=== PATIENT | female | born 1975 | race Caucasian/White ===

== ENCOUNTER 2018-07-27 11:34 | Emergency (ER) | payer MEDICAID ==
--- NOTE | 2018-07-27 11:38 | EDM.PDOC ---
ED HPI GENERAL MEDICAL PROBLEM - General Chief Complaint: Neuro Symptoms/Deficits Stated Complaint: AMB Time Seen by Provider: 07/27/18 11:35 Source of Information: Reports: Patient History Limitations: Reports: No Limitations - History of Present Illness INITIAL COMMENTS - FREE TEXT/NARRATIVE: History of present illness: []Patient has a history of MS and recently restarted her medications. She developed a migraine headache 2 weeks ago that has progressively been worsening. Patient states she has tingling on the left side of her body which is chronic and unchanged and she is currently taking gabapentin for. Patient is nauseated but not vomiting. She denies any fevers, chills, cough, dysuria or abdominal pain. She states she has been short of breath recently. She states when she has her migraine headaches usually a steroid taper works well for her pain. Patient also states that when she has tingling usually means her anemia is worsening. The bleeding. Review of systems: As per history of present illness and below otherwise all systems reviewed and negative. Past medical history: As per history of present illness and as reviewed below otherwise noncontributory. Surgical history: As per history of present illness and as reviewed below otherwise noncontributory. Social history: No reported history of drug or alcohol abuse. Family history: As per history of present illness and as reviewed below otherwise noncontributory. Physical exam: General: Well developed, well nourished in NAD HEENT: Atraumatic, normocephalic, pupils reactive, negative for conjunctival pallor or scleral icterus, mucous membranes moist, throat clear, neck supple, nontender, trachea midline. Lungs: Clear to auscultation, breath sounds equal bilaterally, chest nontender. Heart: S1S2, regular, negative for clicks, rubs, or JVD. Abdomen: Soft, nondistended, nontender. Negative for masses or hepatosplenomegaly. Negative for costovertebral tenderness. Pelvis: Stable nontender. Genitourinary: Deferred. Rectal: Deferred. Extremities: Atraumatic, negative for cords or calf pain. Neurovascular unremarkable. Neuro: Awake, alert, oriented. Cranial nerves II through XII unremarkable. Cerebellum unremarkable. Motor and sensory unremarkable throughout. Exam nonfocal. Skin:warm and dry Diagnostics: CBC, chemistry, UA, chest x-ray Therapeutics: Zofran, hydrocodone ED Course: Unremarkable Impression: Cephalgia Prescriptions: Zofran, Medrol Dosepak Plan: Follow up with your primary care, iron supplements take meds as directed. Definitive disposition and diagnosis as appropriate pending reevaluation and review of above. headache and left side pain Pain Score (Numeric/FACES): 9 - Related Data Allergies Allergy/AdvReac Type Severity Reaction Status Date / Time No Known Allergies Allergy Verified 07/27/18 11:35 Home Meds: Home Meds Albuterol Sulfate [Proair Hfa] 1 puff INH ASDIRECTED PRN 07/27/18 [History] Biotin 1 tab PO DAILY 07/27/18 [History] Cyanocobalamin (Vitamin B-12) [Vitamin B-12] 2,500 mg PO DAILY 07/27/18 [History ] DULoxetine [Cymbalta] 60 mg PO DAILY 07/27/18 [History] Docusate Sodium 1 tab PO BEDTIME 07/27/18 [History] Eszopiclone 3 mg PO BEDTIME 07/27/18 [History] Eszopiclone 3 mg PO BEDTIME 07/27/18 [History] Ferrous Sulfate 325 mg PO DAILY 07/27/18 [History] Gabapentin [Neurontin] 900 mg PO TID 07/27/18 [History] Lisinopril/Hydrochlorothiazide [Lisinopril-Hctz 20-25 mg Tab] 1 tab PO DAILY [History] Nortriptyline 25 mg PO BEDTIME 07/27/18 [History] amLODIPine [Norvasc] 10 mg PO DAILY 07/27/18 [History] methylPREDNISolone [Medrol] 4 mg PO ASDIRECTED #1 dosepk 07/27/18 [Rx] tiZANidine [Zanaflex] 8 mg PO Q8HR PRN 07/27/18 [History] ED ROS GENERAL - Review of Systems Review Of Systems: ROS reveals no pertinent complaints other than HPI. ED EXAM, GENERAL - Physical Exam Exam: See Below (See history of present illness) Course - Vital Signs Last Recorded V/S: Last Vital Signs Temp 97.7 F 07/27/18 11:35 Pulse 117 H 07/27/18 11:35 Resp 16 07/27/18 11:35 BP 132/82 07/27/18 11:35 Pulse Ox 100 09/16/18 11:35 - Orders/Labs/Meds Orders: Active Orders 24 hr Category Date Time Status Chest 2V [CR] Stat Exams 07/27/18 11:46 Taken UA W/MICROSCOPIC [URIN] Stat Lab 07/27/18 11:46 Ordered Labs: Laboratory Tests 07/27/18 07/27/18 Range/Units 12:02 12:02 WBC 7.11 (4.0-11.0) K/uL RBC 4.04 L (4.30-5.90) M/uL Hgb 8.8 L (12.0-16.0) g/dL Hct 29.6 L (36.0-46.0) % MCV 73.3 L (80.0-98.0) fL MCH 21.8 L (27.0-32.0) pg MCHC 29.7 L (31.0-37.0) g/dL RDW Std Deviation 53.2 (28.0-62.0) fl RDW Coeff of Tramaine 20 H (11.0-15.0) % Plt Count 469 H (150-400) K/uL MPV 8.20 (7.40-12.00) fL Neut % (Auto) 64.7 (48.0-80.0) % Lymph % (Auto) 25.5 (16.0-40.0) % [place] % (Auto) 8.0 (0.0-15.0) % Eos % (Auto) 1.4 (0.0-7.0) % Baso % (Auto) 0.4 (0.0-1.5) % Neut # (Auto) 4.6 (1.4-5.7) K/uL Lymph # (Auto) 1.8 (0.6-2.4) K/uL [place] # (Auto) 0.6 (0.0-0.8) K/uL Eos # (Auto) 0.1 (0.0-0.7) K/uL Baso # (Auto) 0.0 (0.0-0.1) K/uL Nucleated RBC % 0.0 /100WBC Nucleated RBCs # 0 K/uL Sodium 135 L (136-145) mmol/L Potassium 3.5 (3.5-5.1) mmol/L Chloride 99 (98-107) mmol/L Carbon Dioxide 27.4 (21.0-32.0) mmol/L BUN 19 H (7.0-18.0) mg/dL Creatinine 1.3 H (0.6-1.0) mg/dL Est Cr Clr Drug Dosing TNP Estimated GFR (MDRD) 44.9 ml/min Glucose 120 H (74-106) mg/dL Calcium 9.9 (8.5-10.1) mg/dL Total Bilirubin 0.2 (0.2-1.0) mg/dL AST 15 (15-37) IU/L ALT 21 (14-63) IU/L Alkaline Phosphatase 112 (46-116) U/L Total Protein 7.9 (6.4-8.2) g/dL Albumin 3.4 (3.4-5.0) g/dL Globulin 4.5 H (2.0-3.5) g/dL Albumin/Globulin Ratio 0.8 L (1.3-2.8) Meds: Medications Discontinued Medications Generic Name Dose Route Start Last Admin Trade Name Sanjeev PRN Reason Stop Dose Admin Hydrocodone Bitart/Acetaminophen 1 tab 07/27/18 11:54 07/27/18 12:18 [place] 325-5 Mg PO 07/27/18 11:55 1 tab ONETIME ONE Administration Ketorolac Tromethamine 60 mg 07/27/18 11:46 07/27/18 12:08 Toradol IM 07/27/18 11:47 Not Given ONETIME ONE Ondansetron HCl 4 mg 07/27/18 11:54 07/27/18 12:18 Zofran Odt PO 07/27/18 11:55 4 mg ONETIME ONE Administration Departure - Departure Time of Disposition: 12:52 Disposition: Home, Self-Care 01 Condition: Good Clinical Impression: Chronic anemia Migraine headache Qualifiers: Migraine type: unspecified Status migrainosus presence: without status migrainosus Intractability: not intractable Qualified Code(s): G43.909 - Migraine, unspecified, not intractable, without status migrainosus - Discharge Information *PRESCRIPTION DRUG MONITORING PROGRAM REVIEWED*: No *COPY OF PRESCRIPTION DRUG MONITORING REPORT IN PATIENT ANNETTE: No Prescriptions: methylPREDNISolone [Medrol] 4 mg PO ASDIRECTED #1 dosepk Forms: ED Department Discharge Additional Instructions: The following information is given to patients seen in the emergency department who are being discharged to home. This information is to outline your options for follow-up care. We provide all patients seen in our emergency department with a follow-up referral. The need for follow-up, as well as the timing and circumstances, are variable depending upon the specifics of your emergency department visit. If you don't have a primary care physician on staff, we will provide you with a referral. We always advise you to contact your personal physician following an emergency department visit to inform them of the circumstance of the visit and for follow-up with them and/or the need for any referrals to a consulting specialist. The emergency department will also refer you to a specialist when appropriate. This referral assures that you have the opportunity for follow-up care with a specialist. All of these measure are taken in an effort to provide you with optimal care, which includes your follow-up. Under all circumstances we always encourage you to contact your private physician who remains a resource for coordinating your care. When calling for follow-up care, please make the office aware that this follow-up is from your recent emergency room visit. If for any reason you are refused follow-up, please contact the [facility] Emergency Department at and asked to speak to the emergency department charge nurse. Take meds as directed, add iron supplement for anemia follow-up with primary care return if symptoms worsen or change [facility] [address] [place] [id number] - My Orders Last 24 Hours: My Active Orders 07/27/18 11:46 Chest 2V [CR] Stat UA W/MICROSCOPIC [URIN] Stat - Assessment/Plan Last 24 Hours: My Active Orders 07/27/18 11:46 Chest 2V [CR] Stat UA W/MICROSCOPIC [URIN] Stat
[2018-07-27] MEDS ORDERED: Ketorolac 60 MG/2 ML SDV IM ONE (11:46)
[2018-07-27] MEDS ORDERED: Acetaminophen/HYDROcodone 325-5 MG Tab PO ONE (11:54)
[2018-07-27] MEDS ORDERED: Ondansetron 4 MG Tab.DIS PO ONE (11:54)
[2018-07-27 12:40] LABS: CHLORIDE,CL 99 mmol/L (98-107); SODIUM,NA 135 mmol/L (136-145)
--- NOTE | 2018-07-29 09:57 | CR ---
EXAM DATE: 07/27/18 PATIENT'S AGE: 43 Patient: SHAYY HAILE Facility: [place] [place] Site . Site : [id number] Study: XRay Chest [id number] 12:32:14 PM Ordering Physician: Chema Pardo Final Report: INDICATION: pain/sob/MS 2 View Chest. Findings: The lungs are clear. Pulmonary vascularity, mediastinum and cardiac silhouette are within normal limits. No effusions and no pneumothorax. Osseous structures appear unremarkable. Impression: No evidence of acute cardiopulmonary disease. Dictated by: Bebeto Redding MD @ 07/27/2018 12:54:37 (Electronic Signature) Report Signed by Proxy. LASHAUN
== END 2018-07-27 13:00 | disposition home or self-care (01) ==
LOC: MW.ED 11:34
DX: G43.909 Migraine, unspecified, not intractable, without status migrainosus (principal); D64.9 Anemia, unspecified; Z79.899 Other long term (current) drug therapy
CPT/HCPCS: 36415; 71046; 80053; 81001; 85025; 99285; A9270

== ENCOUNTER 2018-07-31 07:27 | Observation (INO) | payer SELFPAY ==
[2018-07-31] MEDS ORDERED: HYDROmorphone 2 MG/ML SDV IVPUSH PRN (07:31)
[2018-07-31] MEDS ORDERED: Sodium Chloride 0.9% 1,000 ML IV ONE (07:31)
[2018-07-31] MEDS ORDERED: Ondansetron 4 MG/2 ML SDV ONE (07:52)
[2018-07-31] MEDS ORDERED: Ondansetron 4 MG/2 ML SDV IVPUSH ONE (07:55)
[2018-07-31 08:21] LABS: CHLORIDE,CL 100 mmol/L (98-107); SODIUM,NA 137 mmol/L (136-145)
[2018-07-31] MEDS ORDERED: HYDROmorphone 1 MG/ML Syringe IVPUSH ONE (09:34)
--- NOTE | 2018-07-31 09:44 | CR ---
EXAMINATION: Portable chest radiograph. HISTORY: Shortness of breath. FINDINGS: The trachea is midline. The cardiomediastinal silhouette is within normal limits. No pulmonary infilt rates, effusions or pneumothorax. Moderate hiatal hernia. Osseous structures appear unremarkable. IMPRESSION: No acute cardiopulmonary process.
--- NOTE | 2018-07-31 10:02 | US ---
ULTRASOUND EXAMINATION OF the right lower extremity WITH DOPPLER HISTORY: Pain FINDINGS: Examination of the right leg was performed from the groin to the calf region. All visualized segment s including common femoral, proximal greater saphenous, superficial femoral, popliteal and calf veins appear patent with good compressibility and augmentation. There is no evidence of deep vein thrombo sis. IMPRESSION: No evidence of a DVT.
[2018-07-31] MEDS ORDERED: HYDROmorphone 2 MG/ML Syringe IVPUSH ONE ×2 (10:39→10:49)
[2018-07-31] MEDS ORDERED: HYDROmorphone 2 MG/ML SDV ONE (10:43)
[2018-07-31] MEDS ORDERED: HYDROmorphone 2 MG/ML SDV IVPUSH ONE (10:52)
--- NOTE | 2018-07-31 11:49 | US ---
EXAMINATION: ABIs HISTORY: Pain COMPARISON: None TECHNIQUE: Pressures obtained in the upper and lower extremities bilaterally. FINDINGS/IMPRESSION: The right TERESA is notably abnormal at 0.56 suggesting serious claudication. The l eft TERESA is grossly normal at 0.93.
[2018-07-31] MEDS ORDERED: Ketorolac 30 MG/ML SDV IVPUSH ONE (12:18)
[2018-07-31] MEDS ORDERED: methylPREDNISolone Sodium Succinate 125 MG/2 ML SDV IVPUSH ONE (12:34)
--- NOTE | 2018-07-31 12:56 | EDM.PDOC ---
ED HPI GENERAL MEDICAL PROBLEM - General Chief Complaint: Lower Extremity Injury/Pain Stated Complaint: AMBULANCE Time Seen by Provider: 07/31/18 12:53 Source of Information: Reports: Patient - History of Present Illness INITIAL COMMENTS - FREE TEXT/NARRATIVE: HISTORY AND PHYSICAL: History of present illness: Patient presents with 10 out of 10 right lower extremity pain calf to ankle, began while standing at work with no injury or trauma she's had one episode like this previously that lasted for a couple of days she has a history of MS she is taking Neurontin 900 mg 3 times daily No fever nausea vomiting chills sweats no chest pain shortness breath headache dizziness palpitation no bowel or urine symptoms no footdrop or saddle anesthesia 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 Past medical history: As per history of present illness and as reviewed below otherwise noncontributory. Surgical history: As per history of present illness and as reviewed below otherwise noncontributory. Social history: No reported history of drug or alcohol abuse. Family history: As per history of present illness and as reviewed below otherwise noncontributory. Physical exam: HEENT: Atraumatic, normocephalic, pupils reactive, negative for conjunctival pallor or scleral icterus, mucous membranes moist, throat clear, neck supple, nontender, trachea midline. Lungs: Clear to auscultation, breath sounds equal bilaterally, chest nontender. Heart: S1S2, regular, negative for clicks, rubs, or JVD. Abdomen: Soft, nondistended, nontender. Negative for masses or hepatosplenomegaly. Negative for costovertebral tenderness. Pelvis: Stable nontender. Genitourinary: Deferred. Rectal: Deferred. Extremities: Atraumatic, negative for cords or calf pain. Neurovascular unremarkable. congenital abnormality left foot noted Neuro: Awake, alert, oriented. Cranial nerves II through XII unremarkable. Cerebellum unremarkable. Motor and sensory unremarkable throughout. Exam nonfocal. Diagnostics: [TERESA Venous ultrasound rule out DVT CBC CMP INR ] Therapeutics: Dilaudid 0.5 mg IV followed by 1 mg IV followed by [Dilaudid 2 mg IV ] Toradol 30 mg IV Solu-Medrol 125 mg IV Patient is on Neurontin Impression: [Right lower extremity pain] Intractable pain Definitive disposition and diagnosis as appropriate pending reevaluation and review of above. Right foot/Left arm Pain Score (Numeric/FACES): 10 - Related Data Allergies Allergy/AdvReac Type Severity Reaction Status Date / Time No Known Allergies Allergy Verified 07/31/18 07:29 Home Meds: Home Meds Albuterol Sulfate [Proair Hfa] 1 puff INH ASDIRECTED PRN 07/27/18 [History] Biotin 1 tab PO DAILY 07/27/18 [History] Cyanocobalamin (Vitamin B-12) [Vitamin B-12] 2,500 mg PO DAILY 07/27/18 [History ] DULoxetine [Cymbalta] 60 mg PO DAILY 07/27/18 [History] Docusate Sodium 1 tab PO BEDTIME 07/27/18 [History] Eszopiclone 3 mg PO BEDTIME 07/27/18 [History] Eszopiclone 3 mg PO BEDTIME 07/27/18 [History] Ferrous Sulfate 325 mg PO DAILY 07/27/18 [History] Gabapentin [Neurontin] 900 mg PO TID 07/27/18 [History] Lisinopril/Hydrochlorothiazide [Lisinopril-Hctz 20-25 mg Tab] 1 tab PO DAILY [History] Nortriptyline 25 mg PO BEDTIME 07/27/18 [History] amLODIPine [Norvasc] 10 mg PO DAILY 07/27/18 [History] methylPREDNISolone [Medrol] 4 mg PO ASDIRECTED #1 dosepk 07/27/18 [Rx] tiZANidine [Zanaflex] 8 mg PO Q8HR PRN 07/27/18 [History] Past Medical History Cardiovascular History: Reports: Hypertension Neurological History: Reports: Migraines, TIA, Other (See Below) Other Neuro History: MS Psychiatric History: Reports: Anxiety, Depression Social & Family History - Family History Family Medical History: Noncontributory - Tobacco Use Smoking Status *Q: Current Every Day Smoker Years of Tobacco use: 23 Packs/Tins Daily: 1 - Caffeine Use Caffeine Use: Reports: Coffee, Energy Drinks, Soda, Tea - Recreational Drug Use Recreational Drug Use: No Review of Systems - Review of Systems Review Of Systems: See Below ED EXAM, GENERAL - Physical Exam Exam: See Below Course - Vital Signs Last Recorded V/S: Last Vital Signs Temp 97.4 F 07/31/18 07:30 Pulse 116 H 07/31/18 10:54 Resp 16 07/31/18 10:54 BP 152/77 H 07/31/18 10:54 Pulse Ox 99 07/31/18 10:54 - Orders/Labs/Meds Orders: Active Orders 24 hr Category Date Time Status EKG Documentation Completion [RC] STAT Care 07/31/18 07:31 Active UA W/MICROSCOPIC [URIN] Stat Lab 07/31/18 07:31 Ordered HYDROmorphone [Dilaudid] Med 07/31/18 07:31 Active 0.5 mg IVPUSH ONETIME PRN Medication Orders Hydromorphone HCl (Dilaudid) 0.5 mg IVPUSH ONETIME PRN PRN Reason: Pain Last Admin: 07/31/18 07:47 Dose: 0.5 mg Labs: Laboratory Tests 07/31/18 07/31/18 07/31/18 Range/Units 07:40 07:40 07:40 WBC 12.64 H (4.0-11.0) K/uL RBC 3.95 L (4.30-5.90) M/uL Hgb 8.7 L (12.0-16.0) g/dL Hct 29.4 L (36.0-46.0) % MCV 74.4 L (80.0-98.0) fL MCH 22.0 L (27.0-32.0) pg MCHC 29.6 L (31.0-37.0) g/dL RDW Std Deviation 53.3 (28.0-62.0) fl RDW Coeff of Tramaine 20 H (11.0-15.0) % Plt Count 306 (150-400) K/uL MPV 8.10 (7.40-12.00) fL Neut % (Auto) 67.1 (48.0-80.0) % Lymph % (Auto) 23.0 (16.0-40.0) % [place] % (Auto) 9.3 (0.0-15.0) % Eos % (Auto) 0.3 (0.0-7.0) % Baso % (Auto) 0.3 (0.0-1.5) % Neut # (Auto) 8.5 H (1.4-5.7) K/uL Lymph # (Auto) 2.9 H (0.6-2.4) K/uL [place] # (Auto) 1.2 H (0.0-0.8) K/uL Eos # (Auto) 0.0 (0.0-0.7) K/uL Baso # (Auto) 0.0 (0.0-0.1) K/uL Nucleated RBC % 0.2 /100WBC Nucleated RBCs # 0 K/uL INR 0.95 Sodium 137 (136-145) mmol/L Potassium 3.3 L (3.5-5.1) mmol/L Chloride 100 (98-107) mmol/L Carbon Dioxide 21.7 (21.0-32.0) mmol/L BUN 13 (7.0-18.0) mg/dL Creatinine 1.3 H (0.6-1.0) mg/dL Est Cr Clr Drug Dosing TNP Estimated GFR (MDRD) 44.9 ml/min Glucose 114 H (74-106) mg/dL Calcium 8.9 (8.5-10.1) mg/dL Total Bilirubin 0.1 L (0.2-1.0) mg/dL AST 27 (15-37) IU/L ALT 37 (14-63) IU/L Alkaline Phosphatase 103 (46-116) U/L Troponin I < 0.050 (0.000-0.056) ng/mL Total Protein 7.7 (6.4-8.2) g/dL Albumin 3.4 (3.4-5.0) g/dL Globulin 4.3 H (2.0-3.5) g/dL Albumin/Globulin Ratio 0.8 L (1.3-2.8) Meds: Medications Generic Name Dose Route Start Last Admin Trade Name Freq PRN Reason Stop Dose Admin Hydromorphone HCl 0.5 mg 07/31/18 07:31 07/31/18 07:47 Dilaudid IVPUSH 0.5 mg ONETIME PRN Administration Pain Discontinued Medications Generic Name Dose Route Start Last Admin Trade Name Freq PRN Reason Stop Dose Admin Hydromorphone HCl 1 mg 07/31/18 09:34 07/31/18 09:38 Dilaudid IVPUSH 07/31/18 09:35 1 mg ONETIME ONE Administration Hydromorphone HCl 2 mg 07/31/18 10:39 07/31/18 10:54 Dilaudid IVPUSH 07/31/18 10:40 Not Given ONETIME ONE Hydromorphone HCl Confirm 07/31/18 10:43 07/31/18 10:48 Dilaudid Administered 07/31/18 10:44 Not Given Dose 2 mg .ROUTE .STK-MED ONE Hydromorphone HCl 2 mg 07/31/18 10:49 07/31/18 10:54 Dilaudid IVPUSH 07/31/18 10:50 Not Given ONETIME ONE Hydromorphone HCl 2 mg 07/31/18 10:52 07/31/18 10:53 Dilaudid IVPUSH 07/31/18 10:53 2 mg ONETIME ONE Administration Sodium Chloride 1,000 mls @ 999 mls/hr 07/31/18 07:31 07/31/18 07:47 Normal Saline IV 07/31/18 08:31 999 mls/hr STAT ONE Administration Ketorolac Tromethamine 30 mg 07/31/18 12:18 07/31/18 12:40 Toradol IVPUSH 07/31/18 12:19 30 mg ONETIME ONE Administration Methylprednisolone Sodium Succinate 125 mg 07/31/18 12:34 07/31/18 12:50 Solu-Medrol IVPUSH 07/31/18 12:35 125 mg ONETIME ONE Administration Ondansetron HCl 8 mg 07/31/18 07:55 07/31/18 07:56 Zofran IVPUSH 07/31/18 07:56 8 mg ONETIME ONE Administration Ondansetron HCl Confirm 07/31/18 07:52 07/31/18 07:57 Zofran Administered 07/31/18 07:53 Not Given Dose 8 mg .ROUTE .STK-MED ONE Departure - Departure Time of Disposition: 13:30 Disposition: Refer to Observation Condition: Fair Clinical Impression: Intractable pain - Discharge Information Referrals: PCP,None [Primary Care Provider] - Forms: ED Department Discharge - My Orders Last 24 Hours: My Active Orders 07/31/18 07:31 EKG Documentation Completion [RC] STAT UA W/MICROSCOPIC [URIN] Stat HYDROmorphone [Dilaudid] 0.5 mg IVPUSH ONETIME PRN - Assessment/Plan Last 24 Hours: My Active Orders 07/31/18 07:31 EKG Documentation Completion [RC] STAT UA W/MICROSCOPIC [URIN] Stat HYDROmorphone [Dilaudid] 0.5 mg IVPUSH ONETIME PRN
[2018-07-31] MEDS ORDERED: tiZANidine 4 MG Tab PO PRN (15:31)
[2018-07-31] MEDS ORDERED: Albuterol 6.7 GM Inhaler INH PRN (15:31)
--- NOTE | 2018-07-31 15:41 | PCM.HP ---
H&P History of Present Illness - General Date of Service: 07/31/18 Admit Problem/Dx: Admission Diagnosis/Problem Admission Diagnosis/Problem Pain - History of Present Illness Initial Comments - Free Text/Narative: She was at work today standing when she noted severe burning pain right foot. She had similar pain one time before but it was not nearly so severe and it resolved without medical attention. She suffered an injury with fracture right foot more than one year ago. The last episode of was sometime after the aforementioned injury. NO acute trauma no fever no history of DM She was diagnosed with multiple sclerosis in 2013 and at times, since then has had intermittent paresthesias with a burning pain. She has a neurology appointment in [place] later this month. It will be her initial neurology visit with this neurologist. She comes from [place]. Right foot/Left arm Pain Score (Numeric/FACES): 8 - Related Data Allergies/Adverse Reactions: Allergies Allergy/AdvReac Type Severity Reaction Status Date / Time No Known Allergies Allergy Verified 07/31/18 07:29 Home Medications: Home Meds Albuterol Sulfate [Proair Hfa] 1 puff INH ASDIRECTED PRN 07/27/18 [History] Biotin 1 tab PO DAILY 07/27/18 [History] Cyanocobalamin (Vitamin B-12) [Vitamin B-12] 2,500 mg PO DAILY 07/27/18 [History ] DULoxetine [Cymbalta] 60 mg PO DAILY 07/27/18 [History] Docusate Sodium 1 tab PO BEDTIME 07/27/18 [History] Eszopiclone 3 mg PO BEDTIME 07/27/18 [History] Eszopiclone 3 mg PO BEDTIME 07/27/18 [History] Ferrous Sulfate 325 mg PO DAILY 07/27/18 [History] Gabapentin [Neurontin] 900 mg PO TID 07/27/18 [History] Lisinopril/Hydrochlorothiazide [Lisinopril-Hctz 20-25 mg Tab] 1 tab PO DAILY [History] Nortriptyline 25 mg PO BEDTIME 07/27/18 [History] amLODIPine [Norvasc] 10 mg PO DAILY 07/27/18 [History] methylPREDNISolone [Medrol] 4 mg PO ASDIRECTED #1 dosepk 07/27/18 [Rx] tiZANidine [Zanaflex] 8 mg PO Q8HR PRN 07/27/18 [History] Past Medical History Cardiovascular History: Reports: Hypertension Respiratory History: Reports: Other (See Below) (bronchospasm; treated with albuterol MDI) Gastrointestinal History: Denies: Cirrhosis Genitourinary History: Denies: Chronic Renal Insuffiency Neurological History: Reports: Migraines, TIA, Other (See Below) Other Neuro History: MS Psychiatric History: Reports: Anxiety, Depression Endocrine/Metabolic History: Denies: Hocking's Disease, Diabetes, Type I, Diabetes, Type II Immunologic History: Denies: AIDS, HIV Social & Family History - Family History Family Medical History: Noncontributory - Tobacco Use Smoking Status *Q: Current Every Day Smoker Years of Tobacco use: 23 Packs/Tins Daily: 1 - Caffeine Use Caffeine Use: Reports: Coffee, Energy Drinks, Soda, Tea - Recreational Drug Use Recreational Drug Use: No H&P Review of Systems - Review of Systems: Review Of Systems: See Below Free Text/Narrative: she has regular menstrual periods. General: Denies: Fever, Chills Pulmonary: Denies: Shortness of Breath, Wheezing, Sputum, Hemoptysis Cardiovascular: Denies: Chest Pain, Edema Gastrointestinal: Denies: Abdominal Pain, Black Stool, Bloody Stool, Hematemesis , Hematochezia, Melena Genitourinary: Denies: Dysuria, Hematuria Skin: Denies: Cyanosis Psychiatric: Denies: Hallucinations Exam - Exam Exam: See Below - Vital Signs Vital Signs: Last Vital Signs Temp 97.9 F 07/31/18 14:34 Pulse 108 H 07/31/18 14:34 Resp 22 H 07/31/18 14:34 BP 189/102 H 07/31/18 14:34 Pulse Ox 98 07/31/18 14:34 - Exam General: Alert, Oriented, Cooperative, Moderate Distress HEENT: Conjunctiva Clear, EOMI Neck: Supple, Trachea Midline Lungs: Clear to Auscultation, Normal Respiratory Effort Cardiovascular: Regular Rate, Regular Rhythm GI/Abdominal Exam: Soft, Non-Tender (Female) Exam: Deferred Extremities: Other (right foot non tender; no swelling ; no deformity; non tender) Neurological: Cranial Nerves Intact, Normal Speech Neuro Extensive - Motor, Sensory, Reflexes: No: Facial palsy (L), Facial Palsy ( R), Hemeplagia (R), Hemeplagia (L) Psychiatric: No: Agitated - Patient Data Lab Results Last 24 hrs: Laboratory Results - last 24 hr 07/31/18 07/31/18 07/31/18 Range/Units 07:40 07:40 07:40 WBC 12.64 H (4.0-11.0) K/uL RBC 3.95 L (4.30-5.90) M/uL Hgb 8.7 L (12.0-16.0) g/dL Hct 29.4 L (36.0-46.0) % MCV 74.4 L (80.0-98.0) fL MCH 22.0 L (27.0-32.0) pg MCHC 29.6 L (31.0-37.0) g/dL RDW Std Deviation 53.3 (28.0-62.0) fl RDW Coeff of Tramaine 20 H (11.0-15.0) % Plt Count 306 (150-400) K/uL MPV 8.10 (7.40-12.00) fL Neut % (Auto) 67.1 (48.0-80.0) % Lymph % (Auto) 23.0 (16.0-40.0) % Martin % (Auto) 9.3 (0.0-15.0) % Eos % (Auto) 0.3 (0.0-7.0) % Baso % (Auto) 0.3 (0.0-1.5) % Neut # (Auto) 8.5 H (1.4-5.7) K/uL Lymph # (Auto) 2.9 H (0.6-2.4) K/uL Martin # (Auto) 1.2 H (0.0-0.8) K/uL Eos # (Auto) 0.0 (0.0-0.7) K/uL Baso # (Auto) 0.0 (0.0-0.1) K/uL Nucleated RBC % 0.2 /100WBC Nucleated RBCs # 0 K/uL INR 0.95 Sodium 137 (136-145) mmol/L Potassium 3.3 L (3.5-5.1) mmol/L Chloride 100 (98-107) mmol/L Carbon Dioxide 21.7 (21.0-32.0) mmol/L BUN 13 (7.0-18.0) mg/dL Creatinine 1.3 H (0.6-1.0) mg/dL Est Cr Clr Drug Dosing TNP Estimated GFR (MDRD) 44.9 ml/min Glucose 114 H (74-106) mg/dL Calcium 8.9 (8.5-10.1) mg/dL Total Bilirubin 0.1 L (0.2-1.0) mg/dL AST 27 (15-37) IU/L ALT 37 (14-63) IU/L Alkaline Phosphatase 103 (46-116) U/L Troponin I < 0.050 (0.000-0.056) ng/mL Total Protein 7.7 (6.4-8.2) g/dL Albumin 3.4 (3.4-5.0) g/dL Globulin 4.3 H (2.0-3.5) g/dL Albumin/Globulin Ratio 0.8 L (1.3-2.8) Urine Color Urine Appearance Urine pH (5.0-8.0) Ur Specific [place] (1.001-1.035) Urine Protein (NEGATIVE) mg/dL Urine Glucose (UA) (NEGATIVE) mg/dL Urine Ketones (NEGATIVE) mg/dL Urine Occult Blood (NEGATIVE) Urine Nitrite (NEGATIVE) Urine Bilirubin (NEGATIVE) Urine Urobilinogen (<2.0) EU/dL Ur Leukocyte Esterase (NEGATIVE) Urine RBC (0-2/HPF) Urine WBC (0-5/HPF) Ur Epithelial Cells (NONE-FEW) Amorphous Sediment (NEGATIVE) Urine Bacteria (NEGATIVE) 07/31/18 Range/Units 14:40 WBC (4.0-11.0) K/uL RBC (4.30-5.90) M/uL Hgb (12.0-16.0) g/dL Hct (36.0-46.0) % MCV (80.0-98.0) fL MCH (27.0-32.0) pg MCHC (31.0-37.0) g/dL RDW Std Deviation (28.0-62.0) fl RDW Coeff of Tramaine (11.0-15.0) % Plt Count (150-400) K/uL MPV (7.40-12.00) fL Neut % (Auto) (48.0-80.0) % Lymph % (Auto) (16.0-40.0) % Martin % (Auto) (0.0-15.0) % Eos % (Auto) (0.0-7.0) % Baso % (Auto) (0.0-1.5) % Neut # (Auto) (1.4-5.7) K/uL Lymph # (Auto) (0.6-2.4) K/uL Martin # (Auto) (0.0-0.8) K/uL Eos # (Auto) (0.0-0.7) K/uL Baso # (Auto) (0.0-0.1) K/uL Nucleated RBC % /100WBC Nucleated RBCs # K/uL INR Sodium (136-145) mmol/L Potassium (3.5-5.1) mmol/L Chloride (98-107) mmol/L Carbon Dioxide (21.0-32.0) mmol/L BUN (7.0-18.0) mg/dL Creatinine (0.6-1.0) mg/dL Est Cr Clr Drug Dosing Estimated GFR (MDRD) ml/min Glucose (74-106) mg/dL Calcium (8.5-10.1) mg/dL Total Bilirubin (0.2-1.0) mg/dL AST (15-37) IU/L ALT (14-63) IU/L Alkaline Phosphatase (46-116) U/L Troponin I (0.000-0.056) ng/mL Total Protein (6.4-8.2) g/dL Albumin (3.4-5.0) g/dL Globulin (2.0-3.5) g/dL Albumin/Globulin Ratio (1.3-2.8) Urine Color YELLOW Urine Appearance SLT CLOUDY Urine pH 6.0 (5.0-8.0) Ur Specific [place] 1.025 (1.001-1.035) Urine Protein TRACE (NEGATIVE) mg/dL Urine Glucose (UA) NEGATIVE (NEGATIVE) mg/dL Urine Ketones NEGATIVE (NEGATIVE) mg/dL Urine Occult Blood TRACE-INTACT (NEGATIVE) Urine Nitrite NEGATIVE (NEGATIVE) Urine Bilirubin NEGATIVE (NEGATIVE) Urine Urobilinogen 0.2 (<2.0) EU/dL Ur Leukocyte Esterase SMALL (NEGATIVE) Urine RBC 0-2 (0-2/HPF) Urine WBC 1-3 (0-5/HPF) Ur Epithelial Cells MANY (NONE-FEW) Amorphous Sediment MODERATE (NEGATIVE) Urine Bacteria FEW (NEGATIVE) Result Diagrams: 07/31/18 07:40 07/31/18 07:40 - Problem List (1) Multiple sclerosis SNOMED Code(s): 36800385 ICD Code: G35 - MULTIPLE SCLEROSIS Status: Acute Current Visit: Yes (2) Intractable pain SNOMED Code(s): 42677650 ICD Code: R52 - PAIN, UNSPECIFIED Status: Acute Current Visit: Yes (3) Chronic anemia SNOMED Code(s): 982768763 ICD Code: D64.9 - ANEMIA, UNSPECIFIED Status: Acute Current Visit: No Problem List Initiated/Reviewed/Updated: Yes Orders Last 24hrs: Active Orders 24 hr Category Date Time Status Admission Status [Patient Status] [ADT] Stat ADT 07/31/18 13:30 Active EKG Documentation Completion [RC] STAT Care 07/31/18 07:31 Active Albuterol [Proventil HFA] Med 07/31/18 15:31 Ordered 1 puff INH Q4H PRN DULoxetine [Cymbalta] Med 08/01/18 09:00 Ordered 60 mg PO DAILY Docusate Sodium [Docusate Sodium] Med 07/31/18 21:00 Ordered 1 tab PO BEDTIME Eszopiclone [Eszopiclone] Med 07/31/18 21:00 Ordered 3 mg PO BEDTIME Ferrous Sulfate Med 08/01/18 09:00 Ordered 325 mg PO DAILY Gabapentin [Neurontin] Med 07/31/18 22:00 Ordered 900 mg PO TID HYDROmorphone [Dilaudid] Med 07/31/18 07:31 Active 0.5 mg IVPUSH ONETIME PRN Lisinopril/Hydrochlorothiazide [Lisinopril-Hctz 20-25 Med 08/01/18 09:00 Ordered mg Tab] 1 tab PO DAILY Nortriptyline Med 07/31/18 21:00 Ordered 25 mg PO BEDTIME amLODIPine [Norvasc] Med 08/01/18 09:00 Ordered 10 mg PO DAILY fentaNYL [Sublimaze] Med 07/31/18 15:31 Ordered 50 mcg IVPUSH Q1H PRN methylPREDNISolone Sod Succ [Solu-MEDROL] Med 07/31/18 15:45 Ordered 125 mg IVPUSH Q6H tiZANidine [Zanaflex] Med 07/31/18 15:31 Ordered 8 mg PO Q8HR PRN Medication Orders Albuterol (Proventil Hfa) gm INH Q4H PRN PRN Reason: Shortness of Breath Amlodipine Besylate (Norvasc) 10 mg PO DAILY ANITRA Duloxetine HCl (Cymbalta) 60 mg PO DAILY [facility] Fentanyl (Sublimaze) 50 mcg IVPUSH Q1H PRN PRN Reason: Pain Ferrous Sulfate (Ferrous Sulfate) 325 mg PO DAILY ANIT[facility] Gabapentin (Neurontin) 900 mg PO TID ANITRA Hydromorphone HCl (Dilaudid) 0.5 mg IVPUSH ONETIME PRN PRN Reason: Pain Last Admin: 07/31/18 07:47 Dose: 0.5 mg Methylprednisolone Sodium Succinate (Solu-Medrol) 125 mg IVPUSH Q6H ANITRA Non-Formulary Medication (Docusate Sodium [Docusate Sodium]) 1 tab PO BEDTIME ANITRA Non-Formulary Medication (Eszopiclone [Eszopiclone]) 3 mg PO BEDTIME AN[facility]RA Non-Formulary Medication (Lisinopril/Hydrochlorothiazide [Lisinopril-Hctz 20-25 Mg Tab]) 1 tab PO DAILY ANITRA Nortriptyline HCl (Nortriptyline) 25 mg PO BEDTIME ANITRA Tizanidine HCl (Zanaflex) 8 mg PO Q8HR PRN PRN Reason: Other Assessment/Plan Comment:: 07/31/2018 I suspect that this is a neuropathic pain associated with a flare up of her multiple sclerosis. will cover with systemic glucocorticosteroids and aggressively attempt analgesia. will replace K will work up anemia with fecal hemocult, B12, folate , Fe studies, reticulocyte count. follow CBC recheck chemistries in kris Chaudhari MD
[2018-07-31] MEDS ORDERED: Albuterol 8 GM Inhaler INH PRN (15:44)
[2018-07-31] MEDS ORDERED: Ondansetron 4 MG Tab.DIS PO PRN (15:45)
[2018-07-31] MEDS ORDERED: Bisacodyl 5 MG Tab PO PRN (15:45)
[2018-07-31] MEDS ORDERED: Temazepam 15 MG Cap PO PRN (15:45)
[2018-07-31] MEDS: fentaNYL 100 MCG/2 ML SDV IVPUSH PRN ×4 (15:55→21:14)
[2018-07-31] MEDS: NS + KCl 20mEq/L 1,000 ML IV SCH (18:17)
[2018-07-31] MEDS: methylPREDNISolone Sodium Succinate 125 MG/2 ML SDV IVPUSH SCH (18:22)
[2018-07-31] MEDS ORDERED: fentaNYL 250 MCG/5 ML SDV IVPUSH ONE (18:34)
[2018-07-31] MEDS ORDERED: fentaNYL 100 MCG/2 ML SDV IVPUSH ONE ×2 (19:10→21:33)
[2018-07-31] MEDS: tiZANidine 4 MG Tab PO PRN (21:13)
[2018-07-31] MEDS: Gabapentin 300 MG Cap PO SCH (21:14)
[2018-07-31] MEDS: Docusate Sodium 100 MG Cap PO SCH (21:14)
[2018-07-31] MEDS: Nortriptyline 25 MG Cap PO SCH (21:14)
[2018-07-31] MEDS ORDERED: fentaNYL 100 MCG/2 ML SDV ONE (21:38)
[2018-07-31] MEDS: Ketorolac 30 MG/ML SDV IVPUSH PRN (23:08)
[2018-07-31] MEDS: oxyCODONE 5 MG Tab PO PRN (23:09)
[2018-08-01] MEDS: oxyCODONE 5 MG Tab PO PRN ×4 (03:46→21:10)
[2018-08-01] MEDS: Gabapentin 300 MG Cap PO SCH ×3 (05:33→21:10)
[2018-08-01] MEDS: methylPREDNISolone Sodium Succinate 125 MG/2 ML SDV IVPUSH SCH ×3 (05:33→12:20)
[2018-08-01] MEDS: fentaNYL 100 MCG/2 ML SDV IVPUSH PRN ×12 (05:33→23:39)
[2018-08-01] MEDS: Ketorolac 30 MG/ML SDV IVPUSH PRN ×2 (07:53→20:02)
[2018-08-01] MEDS: Lisinopril/Hydrochlorothiazide 10-12.5 MG Tab PO SCH (08:00)
[2018-08-01] MEDS: DULoxetine 60 MG Cap PO SCH (08:01)
[2018-08-01] MEDS: Ferrous Sulfate 325 MG Tab PO SCH (08:01)
[2018-08-01] MEDS: amLODIPine 5 MG Tab PO SCH ×2 (08:01→08:02)
[2018-08-01] MEDS: NS + KCl 20mEq/L 1,000 ML IV SCH (08:14)
--- NOTE | 2018-08-01 11:40 | PCM.PN ---
- General Info Date of Service: 08/01/18 Subjective Update: She was able to sleep about four hours last night. She has more pain this am . She states that she did not take any po pain medicine this am. - Patient Data Vitals - Most Recent: Last Vital Signs Temp 96.8 F 08/01/18 07:56 Pulse 101 H 08/01/18 07:56 Resp 19 08/01/18 07:56 BP 161/87 H 08/01/18 08:02 Pulse Ox 96 08/01/18 07:56 Weight - Most Recent: 123.916 kg I&O - Last 24 Hours: Intake & Output 07/31/18 08/01/18 08/01/18 22:59 06:59 14:59 Intake Total 1100 Output Total 1000 Balance 100 Lab Results Last 24 Hours: Laboratory Results - last 24 hr 07/31/18 07/31/18 07/31/18 Range/Units 14:40 16:05 16:05 WBC (4.0-11.0) K/uL RBC (4.30-5.90) M/uL Hgb (12.0-16.0) g/dL Hct (36.0-46.0) % MCV (80.0-98.0) fL MCH (27.0-32.0) pg MCHC (31.0-37.0) g/dL RDW Std Deviation (28.0-62.0) fl RDW Coeff of Tramaine (11.0-15.0) % Plt Count (150-400) K/uL MPV (7.40-12.00) fL Neut % (Auto) (48.0-80.0) % Lymph % (Auto) (16.0-40.0) % [place] % (Auto) (0.0-15.0) % Eos % (Auto) (0.0-7.0) % Baso % (Auto) (0.0-1.5) % Neut # (Auto) (1.4-5.7) K/uL Lymph # (Auto) (0.6-2.4) K/uL [place] # (Auto) (0.0-0.8) K/uL Eos # (Auto) (0.0-0.7) K/uL Baso # (Auto) (0.0-0.1) K/uL Nucleated RBC % /100WBC Nucleated RBCs # K/uL Absolute Retic (20-80) K/uL Percent Retic (0.5-1.5) % Immature Retic Fraction % Sodium (136-145) mmol/L Potassium (3.5-5.1) mmol/L Chloride (98-107) mmol/L Carbon Dioxide (21.0-32.0) mmol/L BUN (7.0-18.0) mg/dL Creatinine (0.6-1.0) mg/dL Est Cr Clr Drug Dosing mL/min Estimated GFR (MDRD) ml/min Glucose (74-106) mg/dL Calcium (8.5-10.1) mg/dL Magnesium (1.8-2.4) mg/dL Iron (50-175) ug/dL TIBC (250-450) ug/dL % Saturation (20-55) % Transferrin (200-400) ug/dL Ferritin (8-252) ng/mL Vitamin B12 788 (193-986) pg/mL Folate (8.60-58.90) ng/mL HCG, Quant 1.0 mIU/mL Urine Color YELLOW Urine Appearance SLT CLOUDY Urine pH 6.0 (5.0-8.0) Ur Specific [place] 1.025 (1.001-1.035) Urine Protein TRACE (NEGATIVE) mg/dL Urine Glucose (UA) NEGATIVE (NEGATIVE) mg/dL Urine Ketones NEGATIVE (NEGATIVE) mg/dL Urine Occult Blood TRACE-INTACT (NEGATIVE) Urine Nitrite NEGATIVE (NEGATIVE) Urine Bilirubin NEGATIVE (NEGATIVE) Urine Urobilinogen 0.2 (<2.0) EU/dL Ur Leukocyte Esterase SMALL (NEGATIVE) Urine RBC 0-2 (0-2/HPF) Urine WBC 1-3 (0-5/HPF) Ur Epithelial Cells MANY (NONE-FEW) Amorphous Sediment MODERATE (NEGATIVE) Urine Bacteria FEW (NEGATIVE) 08/01/18 08/01/18 08/01/18 Range/Units 04:55 04:55 04:55 WBC 6.38 (4.0-11.0) K/uL RBC 3.84 L (4.30-5.90) M/uL Hgb 8.3 L (12.0-16.0) g/dL Hct 29.0 L (36.0-46.0) % MCV 75.5 L (80.0-98.0) fL MCH 21.6 L (27.0-32.0) pg MCHC 28.6 L (31.0-37.0) g/dL RDW Std Deviation 54.5 (28.0-62.0) fl RDW Coeff of Tramaine 21 H (11.0-15.0) % Plt Count 224 (150-400) K/uL MPV 9.40 (7.40-12.00) fL Neut % (Auto) 88.2 H (48.0-80.0) % Lymph % (Auto) 10.5 L (16.0-40.0) % [place] % (Auto) 1.3 (0.0-15.0) % Eos % (Auto) 0.0 (0.0-7.0) % Baso % (Auto) 0.0 (0.0-1.5) % Neut # (Auto) 5.6 (1.4-5.7) K/uL Lymph # (Auto) 0.7 (0.6-2.4) K/uL [place] # (Auto) 0.1 (0.0-0.8) K/uL Eos # (Auto) 0.0 (0.0-0.7) K/uL Baso # (Auto) 0.0 (0.0-0.1) K/uL Nucleated RBC % 0.3 /100WBC Nucleated RBCs # 0 K/uL Absolute Retic 109.10 H (20-80) K/uL Percent Retic 2.8 H (0.5-1.5) % Immature Retic Fraction 37 % Sodium 136 (136-145) mmol/L Potassium 5.6 H (3.5-5.1) mmol/L Chloride 101 (98-107) mmol/L Carbon Dioxide 25.0 (21.0-32.0) mmol/L BUN 14 (7.0-18.0) mg/dL Creatinine 1.1 H (0.6-1.0) mg/dL Est Cr Clr Drug Dosing 64.79 mL/min Estimated GFR (MDRD) 54.5 ml/min Glucose 150 H (74-106) mg/dL Calcium 9.1 (8.5-10.1) mg/dL Magnesium 1.9 (1.8-2.4) mg/dL Iron 33 L (50-175) ug/dL TIBC 399 (250-450) ug/dL % Saturation 8.27 L (20-55) % Transferrin 279 (200-400) ug/dL Ferritin 151 (8-252) ng/mL Vitamin B12 (193-986) pg/mL Folate 6.30 L (8.60-58.90) ng/mL HCG, Quant mIU/mL Urine Color Urine Appearance Urine pH (5.0-8.0) Ur Specific [place] (1.001-1.035) Urine Protein (NEGATIVE) mg/dL Urine Glucose (UA) (NEGATIVE) mg/dL Urine Ketones (NEGATIVE) mg/dL Urine Occult Blood (NEGATIVE) Urine Nitrite (NEGATIVE) Urine Bilirubin (NEGATIVE) Urine Urobilinogen (<2.0) EU/dL Ur Leukocyte Esterase (NEGATIVE) Urine RBC (0-2/HPF) Urine WBC (0-5/HPF) Ur Epithelial Cells (NONE-FEW) Amorphous Sediment (NEGATIVE) Urine Bacteria (NEGATIVE) Med Orders - Current: Current Medications Albuterol (Ventolin Hfa) 0 gm INH Q4H PRN PRN Reason: Shortness of Breath Amlodipine Besylate (Norvasc) 10 mg PO DAILY [facility] Last Admin: 08/01/18 08:02 Dose: 10 mg Bisacodyl (Dulcolax) 5 mg PO DAILY PRN PRN Reason: Constipation Docusate Sodium (Colace) 100 mg PO BEDTIME [facility] Last Admin: 07/31/18 21:14 Dose: 100 mg Duloxetine HCl (Cymbalta) 60 mg PO DAILY [facility] Last Admin: 08/01/18 08:01 Dose: 60 mg Fentanyl (Sublimaze) 75 mcg IVPUSH Q1H PRN PRN Reason: Pain Last Admin: 08/01/18 11:06 Dose: 75 mcg Ferrous Sulfate (Ferrous Sulfate) 325 mg PO DAILY [facility] Last Admin: 08/01/18 08:01 Dose: 325 mg Gabapentin (Neurontin) 900 mg PO TID [facility] Last Admin: 08/01/18 05:33 Dose: 900 mg Lisinopril/HCTZ (Lisinopril-Hctz 10-12.5 Mg) 2 tab PO DAILY [facility] Last Admin: 08/01/18 08:00 Dose: 2 tab Hydromorphone HCl (Dilaudid) 0.5 mg IVPUSH ONETIME PRN PRN Reason: Pain Last Admin: 07/31/18 07:47 Dose: 0.5 mg Potassium Chloride/Sodium Chloride (Normal Saline With 20 Meq Kcl) 1,000 mls @ 75 mls/hr IV ASDIRECTED [facility] Last Admin: 08/01/18 08:14 Dose: 75 mls/hr Ketorolac Tromethamine (Toradol) 30 mg IVPUSH Q8H PRN PRN Reason: Pain Last Admin: 08/01/18 07:53 Dose: 30 mg Methylprednisolone Sodium Succinate (Solu-Medrol) 125 mg IVPUSH Q6H [facility] Last Admin: 08/01/18 05:33 Dose: 125 mg Nortriptyline HCl (Nortriptyline) 25 mg PO BEDTIME [facility] Last Admin: 07/31/18 21:14 Dose: 25 mg Ondansetron HCl (Zofran Odt) 4 mg PO Q4H PRN PRN Reason: nausea, able to take PO Oxycodone HCl (Oxycodone) 10 mg PO Q4H PRN PRN Reason: Pain Last Admin: 08/01/18 03:46 Dose: 10 mg Temazepam (Restoril) 15 mg PO BEDTIME PRN PRN Reason: Sleep Tizanidine HCl (Zanaflex) 8 mg PO Q8H PRN PRN Reason: Other Last Admin: 07/31/18 21:13 Dose: 8 mg Zaleplon (Sonata) 5 mg PO BEDTIME [facility] Last Admin: 07/31/18 21:14 Dose: 5 mg Discontinued Medications Albuterol (Proventil Hfa) 0 gm INH Q4H PRN PRN Reason: Shortness of Breath Fentanyl (Sublimaze) 50 mcg IVPUSH Q1H PRN PRN Reason: Pain Last Admin: 07/31/18 18:17 Dose: 50 mcg Fentanyl (Sublimaze) 100 mcg IVPUSH ONETIME ONE Stop: 07/31/18 18:35 Last Admin: 07/31/18 19:14 Dose: Not Given Fentanyl (Sublimaze) 100 mcg IVPUSH ONETIME ONE Stop: 07/31/18 19:11 Last Admin: 07/31/18 19:42 Dose: 100 mcg Fentanyl (Sublimaze) 100 mcg IVPUSH ONETIME ONE Stop: 07/31/18 21:34 Last Admin: 07/31/18 21:41 Dose: 100 mcg Fentanyl (Sublimaze) Confirm Administered Dose 100 mcg .ROUTE .STK-MED ONE Stop: 07/31/18 21:39 Last Admin: 07/31/18 23:11 Dose: Not Given Hydromorphone HCl (Dilaudid) 1 mg IVPUSH ONETIME ONE Stop: 07/31/18 09:35 Last Admin: 07/31/18 09:38 Dose: 1 mg Hydromorphone HCl (Dilaudid) 2 mg IVPUSH ONETIME ONE Stop: 07/31/18 10:40 Last Admin: 07/31/18 10:54 Dose: Not Given Hydromorphone HCl (Dilaudid) Confirm Administered Dose 2 mg .ROUTE .STK-MED ONE Stop: 07/31/18 10:44 Last Admin: 07/31/18 10:48 Dose: Not Given Hydromorphone HCl (Dilaudid) 2 mg IVPUSH ONETIME ONE Stop: 07/31/18 10:50 Last Admin: 07/31/18 10:54 Dose: Not Given Hydromorphone HCl (Dilaudid) 2 mg IVPUSH ONETIME ONE Stop: 07/31/18 10:53 Last Admin: 07/31/18 10:53 Dose: 2 mg Sodium Chloride (Normal Saline) 1,000 mls @ 999 mls/hr IV STAT ONE Stop: 07/31/18 08:31 Last Admin: 07/31/18 07:47 Dose: 999 mls/hr Ketorolac Tromethamine (Toradol) 30 mg IVPUSH ONETIME ONE Stop: 07/31/18 12:19 Last Admin: 07/31/18 12:40 Dose: 30 mg Methylprednisolone Sodium Succinate (Solu-Medrol) 125 mg IVPUSH ONETIME ONE Stop: 07/31/18 12:35 Last Admin: 07/31/18 12:50 Dose: 125 mg Ondansetron HCl (Zofran) 8 mg IVPUSH ONETIME ONE Stop: 07/31/18 07:56 Last Admin: 07/31/18 07:56 Dose: 8 mg Ondansetron HCl (Zofran) Confirm Administered Dose 8 mg .ROUTE .STK-MED ONE Stop: 07/31/18 07:53 Last Admin: 07/31/18 07:57 Dose: Not Given Tizanidine HCl (Zanaflex) 8 mg PO Q8HR PRN PRN Reason: Other - Exam General: Alert, Oriented, Other (tearful) Lungs: Normal Respiratory Effort Physical Findings Comments:: right foot seems to have normal distal perfusion without definite swelling or tenderness - Problem List & Annotations (1) Multiple sclerosis SNOMED Code(s): 55362998 Code(s): G35 - MULTIPLE SCLEROSIS Status: Acute Current Visit: Yes (2) Intractable pain SNOMED Code(s): 86708149 Code(s): R52 - PAIN, UNSPECIFIED Status: Acute Current Visit: Yes (3) Chronic anemia SNOMED Code(s): 427243503 Code(s): D64.9 - ANEMIA, UNSPECIFIED Status: Acute Current Visit: No - Problem List Review Problem List Initiated/Reviewed/Updated: Yes - My Orders Last 24 Hours: My Active Orders 07/31/18 15:44 Albuterol [Ventolin HFA] 0 gm INH Q4H PRN 07/31/18 15:45 Oxygen Therapy [RC] PRN Vital Signs [RC] Q4H Bisacodyl [Dulcolax] 5 mg PO DAILY PRN Ondansetron [Zofran ODT] 4 mg PO Q4H PRN Temazepam [Restoril] 15 mg PO BEDTIME PRN Resuscitation Status Routine 07/31/18 15:49 Fecal Occult Blood Collection [RC] ASDIRECTED 07/31/18 16:00 NS + KCl 20mEq/L [Normal Saline with 20 mEq KCl] 1,000 ml IV ASDIRECTED tiZANidine [Zanaflex] 8 mg PO Q8H PRN 07/31/18 18:30 methylPREDNISolone Sod Succ [Solu-MEDROL] 125 mg IVPUSH Q6H 07/31/18 18:39 fentaNYL [Sublimaze] 75 mcg IVPUSH Q1H PRN 07/31/18 21:00 Docusate Sodium [Colace] 100 mg PO BEDTIME Nortriptyline 25 mg PO BEDTIME Zaleplon [Sonata] 5 mg PO BEDTIME 07/31/18 22:00 Gabapentin [Neurontin] 900 mg PO TID 07/31/18 22:46 oxyCODONE 10 mg PO Q4H PRN 07/31/18 22:50 Ketorolac [Toradol] 30 mg IVPUSH Q8H PRN 07/31/18 Dinner Regular Diet [DIET] 08/01/18 09:00 DULoxetine [Cymbalta] 60 mg PO DAILY Ferrous Sulfate 325 mg PO DAILY Lisinopril/Hydrochlorothiazide [Lisinopril-HCTZ 10-12.5 MG] 2 tab PO DAILY amLODIPine [Norvasc] 10 mg PO DAILY - Plan Plan:: 07/31/2018 I suspect that this is a neuropathic pain associated with a flare up of her multiple sclerosis. will cover with systemic glucocorticosteroids and aggressively attempt analgesia. will replace K will work up anemia with fecal hemocult, B12, folate , Fe studies, reticulocyte count. follow CBC recheck chemistries in am Sonido Chaudhari MD 08/01/2018 I think that her pain is related to a peripheral neuropathy. She seems to have improved symptoms but still in significant pain will consult DR Barnes, neurology. Sonido Chaudhari MD
--- NOTE | 2018-08-01 11:42 | PCM.SN ---
- Free Text/Narrative Note: will order fentanyl hand coremaker
--- NOTE | 2018-08-01 11:44 | PCM.SN ---
- Free Text/Narrative Note: add folic acid for low folic acid level Fe supplementation elevated K noted stopped K containing IVF monitor lab in kris Chaudhari MD
[2018-08-01] MEDS ORDERED: fentaNYL/Normal Saline 300 MCG/30 ML PCA Vial IV SCH (11:45)
[2018-08-01] MEDS: Folic Acid 1 MG Tab PO SCH (12:21)
--- NOTE | 2018-08-01 16:22 | PCM.SN ---
- Free Text/Narrative Note: I spoke with DR Dill. She recommended solumedrol 1 g IV q 24 hours x a total of five days. She stated that a prednisone taper could be considered after but may not be necessary. Dr Dill will arrange outpatient follow up after discharge. Plan is for MRI w / wo contrast on saturday of brain, c spine and t spine discharge saturday or saturday. daily solumedrol iv for a total of five doses meaning last dose would be on Saturday. If discharged Saturday, final dose could be given as an outpatient via infusion center. Sonido Chaudhari MD
[2018-08-01] MEDS ORDERED: methylPREDNISolone Sodium Succinate 125 MG/2 ML SDV IVPUSH SCH (16:30)
--- NOTE | 2018-08-01 16:49 | PCM.CONS ---
H&P History of Present Illness - General Date of Service: 08/01/18 Admit Problem/Dx: Admission Diagnosis/Problem Admission Diagnosis/Problem Pain - History of Present Illness Initial Comments - Free Text/Narative: Yesterday morning, she developed pain in the right foot. Meanwhile, she developed similar pain in the left arm. The left arm pain resolved. The pain in the right foot has progressively worsened. Stabbing and burning are the most prominent symptoms. She feels pinching in the bottom of the foot. Pain is constant. The toes are really tight. She has been dizzy and had nausea and a migraine 6 days ago. Migraine improved. She is still off balance, but that is better. She lived in [place].. She had a [facility]ist [facility] in [place]. Her last copaxone shot was April. Dr. Watson got an appt for her in [place]. [facility]. She was diagnosed with MS January 2017. She had had drooped face and numbness and pain of the left arm and leg. She was evaluated at [facility] in [place]. She had MRI, no LP. . She started the copaxone about 3 weeks later. She was on 40 three times a week until April. She has 5-6 flairs numbness, weakness, slurred speech, cognitive disturbance. Her last MRi was around Sep 2017. In April 2018, she had nerve pain in the left arm from shoulder to finger tips to finger tips. She was still on Copaxone at the time. She was treated with steroids, and symptoms resolved over about 3 weeks. She had been on modafanil for fatigue, but she didnt tolerate it. She has chronic anemia. Cause has not been clearly identified. She has sleep apnea. She wears a CPAP. She has spasms in her back, back pain. Ablation was considered. She takes tizanidine as needed. She has anxiety and depression. She takes duloxetine. She takes nortriptyline and gabapentin. She had been on Vit D 50, 000 / week, which was stopped. FH - No autoimmune disease Tobacco 1ppd Right foot/Left arm Pain Score (Numeric/FACES): 7 - Related Data Allergies/Adverse Reactions: Allergies Allergy/AdvReac Type Severity Reaction Status Date / Time No Known Allergies Allergy Verified 07/31/18 07:29 Home Medications: Home Meds Albuterol Sulfate [Proair Hfa] 1 puff INH ASDIRECTED PRN 07/27/18 [History] Biotin 1 tab PO BEDTIME 07/27/18 [History] Cyanocobalamin (Vitamin B-12) [Vitamin B-12] 2,500 mg PO DAILY 07/27/18 [History ] DULoxetine [Cymbalta] 60 mg PO BEDTIME 07/27/18 [History] Docusate Sodium 1 tab PO BEDTIME 07/27/18 [History] Eszopiclone 3 mg PO BEDTIME 07/27/18 [History] Ferrous Sulfate 325 mg PO DAILY 07/27/18 [History] Gabapentin [Neurontin] 900 mg PO TID 07/27/18 [History] Lisinopril/Hydrochlorothiazide [Lisinopril-Hctz 20-25 mg Tab] 1 tab PO DAILY [History] Nortriptyline 25 mg PO BEDTIME 07/27/18 [History] amLODIPine [Norvasc] 10 mg PO DAILY 07/27/18 [History] methylPREDNISolone [Medrol] 4 mg PO ASDIRECTED #1 dosepk 07/27/18 [Rx] tiZANidine [Zanaflex] 8 mg PO Q8HR PRN 07/27/18 [History] Past Medical History Cardiovascular History: Reports: Hypertension Respiratory History: Reports: Other (See Below) (bronchospasm; treated with albuterol MDI) Gastrointestinal History: Denies: Cirrhosis Genitourinary History: Denies: Chronic Renal Insuffiency Neurological History: Reports: Migraines, TIA, Other (See Below) Other Neuro History: MS Psychiatric History: Reports: Anxiety, Depression Endocrine/Metabolic History: Denies: Kee's Disease, Diabetes, Type I, Diabetes, Type II Immunologic History: Denies: AIDS, HIV - Infectious Disease History Infectious Disease History: Reports: Chicken Pox Social & Family History - Family History Family Medical History: Noncontributory HEENT: Reports: None Cardiac: Reports: None Respiratory: Reports: None - Tobacco Use Smoking Status *Q: Current Every Day Smoker Years of Tobacco use: 23 Packs/Tins Daily: 1 Used Tobacco, but Quit: No Second Hand Smoke Exposure: No - Caffeine Use Caffeine Use: Reports: Coffee, Energy Drinks, Soda, Tea - Recreational Drug Use Recreational Drug Use: No H&P Review of Systems - Review of Systems: Review Of Systems: ROS reveals no pertinent complaints other than HPI. Exam - Exam Exam: See Below - Vital Signs Vital Signs: Last Vital Signs Temp 35.8 C 08/01/18 16:00 Pulse 112 H 08/01/18 16:00 Resp 16 08/01/18 16:00 BP 142/97 H 08/01/18 16:00 Pulse Ox 98 08/01/18 16:00 Weight: 123.916 kg - Exam Physical Exam Comments:: Constitutional: Facial expression shows distress Neurological: Mental Status: General: Normal activity, good hygiene, appropriate appearance. Level of consciousness: Awake, alert. Orientation: Oriented to person, place, time and situation. Concentration/Attention Span: Normal. Comprehension/Praxis: Able to perform a three step command. Neglect: Normal double simultaneous stimulation. Fund of Knowledge/memory: Adequate recent and remote recall. Language: Fluent and articulate without evidence of aphasia or dysarthria. Insight/Judgement: Normal. Cranial Nerves: I: Not tested II: Pupils equally round and reactive to light, visual ribeiro full to confrontation bilaterally. III, IV, : Gaze conjugate, EOMI V: Sensation intact and symmetric to light touch V1-V3 VII: Symmetric facial motor function bilaterally VIII: Intact to finger rub bilaterally IX: Palate elevates symmetrically X: Normal cough XI: Normal shrug bilaterally XII: Tongue protrudes midline Motor: Normal tone in all groups. Giveway right ankle dorsiflexors 2/2 pain, at least 4+/5 Sensation: Sensation is decreased to pinprick right lateral foot and lateral leg. Vibratory sense absent right great tow Deep tendon reflexes: 2+ throughout Coordination: Finger to nose, heel to bishop are intact Gait: not assess Eyes: non icteric Mouth: moist mucus membranes Cardiovascular: RRR Respiratory: clear lungs GI: non tender Musculoskeletal: congenital deformity left anterior foot Skin: no visible rash - Patient Data Lab Results Last 24 hrs: Laboratory Results - last 24 hr 07/31/18 07/31/18 08/01/18 Range/Units 16:05 16:05 04:55 WBC 6.38 (4.0-11.0) K/uL RBC 3.84 L (4.30-5.90) M/uL Hgb 8.3 L (12.0-16.0) g/dL Hct 29.0 L (36.0-46.0) % MCV 75.5 L (80.0-98.0) fL MCH 21.6 L (27.0-32.0) pg MCHC 28.6 L (31.0-37.0) g/dL RDW Std Deviation 54.5 (28.0-62.0) fl RDW Coeff of Tramaine 21 H (11.0-15.0) % Plt Count 224 (150-400) K/uL MPV 9.40 (7.40-12.00) fL Neut % (Auto) 88.2 H (48.0-80.0) % Lymph % (Auto) 10.5 L (16.0-40.0) % Jones % (Auto) 1.3 (0.0-15.0) % Eos % (Auto) 0.0 (0.0-7.0) % Baso % (Auto) 0.0 (0.0-1.5) % Neut # (Auto) 5.6 (1.4-5.7) K/uL Lymph # (Auto) 0.7 (0.6-2.4) K/uL Jones # (Auto) 0.1 (0.0-0.8) K/uL Eos # (Auto) 0.0 (0.0-0.7) K/uL Baso # (Auto) 0.0 (0.0-0.1) K/uL Nucleated RBC % 0.3 /100WBC Nucleated RBCs # 0 K/uL Absolute Retic 109.10 H (20-80) K/uL Percent Retic 2.8 H (0.5-1.5) % Immature Retic Fraction 37 % Sodium (136-145) mmol/L Potassium (3.5-5.1) mmol/L Chloride (98-107) mmol/L Carbon Dioxide (21.0-32.0) mmol/L BUN (7.0-18.0) mg/dL Creatinine (0.6-1.0) mg/dL Est Cr Clr Drug Dosing mL/min Estimated GFR (MDRD) ml/min Glucose (74-106) mg/dL Calcium (8.5-10.1) mg/dL Magnesium (1.8-2.4) mg/dL Iron (50-175) ug/dL TIBC (250-450) ug/dL % Saturation (20-55) % Transferrin (200-400) ug/dL Ferritin (8-252) ng/mL Vitamin B12 788 (193-986) pg/mL Folate (8.60-58.90) ng/mL HCG, Quant 1.0 mIU/mL 08/01/18 08/01/18 Range/Units 04:55 04:55 WBC (4.0-11.0) K/uL RBC (4.30-5.90) M/uL Hgb (12.0-16.0) g/dL Hct (36.0-46.0) % MCV (80.0-98.0) fL MCH (27.0-32.0) pg MCHC (31.0-37.0) g/dL RDW Std Deviation (28.0-62.0) fl RDW Coeff of Tramaine (11.0-15.0) % Plt Count (150-400) K/uL MPV (7.40-12.00) fL Neut % (Auto) (48.0-80.0) % Lymph % (Auto) (16.0-40.0) % Jones % (Auto) (0.0-15.0) % Eos % (Auto) (0.0-7.0) % Baso % (Auto) (0.0-1.5) % Neut # (Auto) (1.4-5.7) K/uL Lymph # (Auto) (0.6-2.4) K/uL Jones # (Auto) (0.0-0.8) K/uL Eos # (Auto) (0.0-0.7) K/uL Baso # (Auto) (0.0-0.1) K/uL Nucleated RBC % /100WBC Nucleated RBCs # K/uL Absolute Retic (20-80) K/uL Percent Retic (0.5-1.5) % Immature Retic Fraction % Sodium 136 (136-145) mmol/L Potassium 5.6 H (3.5-5.1) mmol/L Chloride 101 (98-107) mmol/L Carbon Dioxide 25.0 (21.0-32.0) mmol/L BUN 14 (7.0-18.0) mg/dL Creatinine 1.1 H (0.6-1.0) mg/dL Est Cr Clr Drug Dosing 64.79 mL/min Estimated GFR (MDRD) 54.5 ml/min Glucose 150 H (74-106) mg/dL Calcium 9.1 (8.5-10.1) mg/dL Magnesium 1.9 (1.8-2.4) mg/dL Iron 33 L (50-175) ug/dL TIBC 399 (250-450) ug/dL % Saturation 8.27 L (20-55) % Transferrin 279 (200-400) ug/dL Ferritin 151 (8-252) ng/mL Vitamin B12 (193-986) pg/mL Folate 6.30 L (8.60-58.90) ng/mL HCG, Quant mIU/mL Result Diagrams: 08/01/18 04:55 08/01/18 04:55 Consult PN Assessment/Plan Procedures: Procedures COMPLETE CBC W/AUTO DIFF WBC (07/27/18) COMPREHEN METABOLIC PANEL (07/27/18) EMERGENCY DEPT VISIT (07/27/18) ROUTINE VENIPUNCTURE (07/27/18) URINALYSIS AUTO W/SCOPE (07/27/18) X-RAY EXAM CHEST 2 VIEWS (07/27/18) (1) Multiple sclerosis SNOMED Code(s): 44964717 Code(s): G35 - MULTIPLE SCLEROSIS Current Visit: Yes Assessment:: 43 year old woman with history of multiple sclerosis by history, currently with right foot pain and sensory deficits, likely MS exacerbation. TERESA and US right leg were normal. Plan / Rec: -Methylprednisolone 1000 mg IV daily X 5 days. -MRI brain, C and T spine w and w/o contrast -I will request records and schedule her for follow up with me in 2-3 weeks; consider restart copaxone vs. alternative I spoke with Dr. Chaudhari about steroids. Plan to treat methylprednisolone 1000 mg / day while in hospital. If she leaves before 5 days, treatment may be completed as outpt. Problem List Initiated/Reviewed/Updated: Yes
--- NOTE | 2018-08-01 16:51 | PCM.SN ---
- Free Text/Narrative Note: With high dose of solumedrol will start protonix for stress ulcer prophylaxis
[2018-08-01] MEDS: Pantoprazole 40 MG Tab.CR PO SCH (17:03)
[2018-08-01] MEDS: Nortriptyline 25 MG Cap PO SCH (20:00)
[2018-08-01] MEDS: Docusate Sodium 100 MG Cap PO SCH (20:00)
[2018-08-01] MEDS: tiZANidine 4 MG Tab PO PRN (20:00)
[2018-08-02] MEDS: oxyCODONE 5 MG Tab PO PRN ×6 (03:24→22:12)
[2018-08-02] MEDS: fentaNYL 100 MCG/2 ML SDV IVPUSH PRN ×7 (03:24→14:10)
[2018-08-02] MEDS: Gabapentin 300 MG Cap PO SCH ×3 (06:45→22:12)
[2018-08-02 07:16] LABS: CHLORIDE,CL 101 mmol/L (98-107); SODIUM,NA 135 mmol/L (136-145)
--- NOTE | 2018-08-02 07:23 | PCM.PN ---
- General Info Date of Service: 08/02/18 Subjective Update: The patient is a 43-year-old lady who had been admitted to acute hospitalization on July 31, 2008 pain after she noted to have severe burning right foot pain. The patient does have a history of multiple sclerosis and was diagnosed in 2013. The patient has been evaluated by neurology. Patient today says that she feels better. She still has 7 out of 10 pain in her right lower leg. The patient also has been complaining of constipation as well. She is denying any fever or chills. She's had no nausea or vomiting. Other than constipation the patient has no other complaints. Functional Status: Reports: Pain Controlled, Tolerating Diet - Review of Systems General: Reports: No Symptoms HEENT: Reports: No Symptoms Pulmonary: Reports: No Symptoms Cardiovascular: Reports: No Symptoms Gastrointestinal: Reports: Constipation Genitourinary: Reports: No Symptoms Musculoskeletal: Reports: Leg Pain Skin: Reports: No Symptoms Neurological: Reports: No Symptoms Psychiatric: Reports: No Symptoms - Patient Data Vitals - Most Recent: Last Vital Signs Temp 36.0 C 08/02/18 04:00 Pulse 88 08/02/18 04:00 Resp 18 08/02/18 04:00 BP 146/98 H 08/02/18 04:00 Pulse Ox 95 08/02/18 04:00 Weight - Most Recent: 123.916 kg I&O - Last 24 Hours: Intake & Output 08/01/18 08/02/18 08/02/18 22:59 06:59 14:59 Intake Total 820 1400 Output Total 1300 1050 Balance -480 350 Lab Results Last 24 Hours: Laboratory Results - last 24 hr 08/02/18 Range/Units 06:35 WBC 8.90 (4.0-11.0) K/uL RBC 3.75 L (4.30-5.90) M/uL Hgb 8.3 L (12.0-16.0) g/dL Hct 28.3 L (36.0-46.0) % MCV 75.5 L (80.0-98.0) fL MCH 22.1 L (27.0-32.0) pg MCHC 29.3 L (31.0-37.0) g/dL RDW Std Deviation 53.2 (28.0-62.0) fl RDW Coeff of Tramaine 21 H (11.0-15.0) % Plt Count 234 (150-400) K/uL MPV 9.80 (7.40-12.00) fL Neut % (Auto) 88.6 H (48.0-80.0) % Lymph % (Auto) 7.6 L (16.0-40.0) % [place] % (Auto) 3.8 (0.0-15.0) % Eos % (Auto) 0.0 (0.0-7.0) % Baso % (Auto) 0.0 (0.0-1.5) % Neut # (Auto) 7.9 H (1.4-5.7) K/uL Lymph # (Auto) 0.7 (0.6-2.4) K/uL [place] # (Auto) 0.3 (0.0-0.8) K/uL Eos # (Auto) 0.0 (0.0-0.7) K/uL Baso # (Auto) 0.0 (0.0-0.1) K/uL Nucleated RBC % 0.0 /100WBC Nucleated RBCs # 0 K/uL Med Orders - Current: Current Medications Albuterol (Ventolin Hfa) 0 gm INH Q4H PRN PRN Reason: Shortness of Breath Amlodipine Besylate (Norvasc) 10 mg PO DAILY [facility] Last Admin: 08/01/18 08:02 Dose: 10 mg Bisacodyl (Dulcolax) 5 mg PO DAILY PRN PRN Reason: Constipation Docusate Sodium (Colace) 100 mg PO BEDTIME [facility] Last Admin: 08/01/18 20:00 Dose: 100 mg Duloxetine HCl (Cymbalta) 60 mg PO DAILY [facility] Last Admin: 08/01/18 08:01 Dose: 60 mg Fentanyl (Sublimaze) 75 mcg IVPUSH Q1H PRN PRN Reason: Pain Last Admin: 08/02/18 06:44 Dose: 75 mcg Ferrous Sulfate (Ferrous Sulfate) 325 mg PO DAILY [facility] Last Admin: 08/01/18 08:01 Dose: 325 mg Folic Acid (Folic Acid) 1 mg PO DAILY [facility] Last Admin: 08/01/18 12:21 Dose: 1 mg Gabapentin (Neurontin) 900 mg PO TID [facility] Last Admin: 08/02/18 06:45 Dose: 900 mg Lisinopril/HCTZ (Lisinopril-Hctz 10-12.5 Mg) 2 tab PO DAILY [facility] Last Admin: 08/01/18 08:00 Dose: 2 tab Hydromorphone HCl (Dilaudid) 0.5 mg IVPUSH ONETIME PRN PRN Reason: Pain Last Admin: 07/31/18 07:47 Dose: 0.5 mg Methylprednisolone Sodium Succinate 1,000 mg/ Sodium Chloride 258 mls @ 258 mls /hr IV Q24H [facility] Last Admin: 08/01/18 16:38 Dose: 258 mls/hr Ketorolac Tromethamine (Toradol) 30 mg IVPUSH Q8H PRN PRN Reason: Pain Last Admin: 08/01/18 20:02 Dose: 30 mg Nortriptyline HCl (Nortriptyline) 25 mg PO BEDTIME [facility] Last Admin: 08/01/18 20:00 Dose: 25 mg Ondansetron HCl (Zofran Odt) 4 mg PO Q4H PRN PRN Reason: nausea, able to take PO Oxycodone HCl (Oxycodone) 10 mg PO Q4H PRN PRN Reason: Pain Last Admin: 08/02/18 03:24 Dose: 10 mg Pantoprazole Sodium (Protonix) 40 mg PO BID [facility] Last Admin: 08/01/18 17:03 Dose: 40 mg Temazepam (Restoril) 15 mg PO BEDTIME PRN PRN Reason: Sleep Tizanidine HCl (Zanaflex) 8 mg PO Q8H PRN PRN Reason: Other Last Admin: 08/01/18 20:00 Dose: 8 mg Zaleplon (Sonata) 5 mg PO BEDTIME [facility] Last Admin: 08/01/18 20:00 Dose: 5 mg Discontinued Medications Albuterol (Proventil Hfa) 0 gm INH Q4H PRN PRN Reason: Shortness of Breath Fentanyl (Sublimaze) 50 mcg IVPUSH Q1H PRN PRN Reason: Pain Last Admin: 07/31/18 18:17 Dose: 50 mcg Fentanyl (Sublimaze) 100 mcg IVPUSH ONETIME ONE Stop: 07/31/18 18:35 Last Admin: 07/31/18 19:14 Dose: Not Given Fentanyl (Sublimaze) 75 mcg IVPUSH Q1H PRN PRN Reason: Pain Last Admin: 08/01/18 11:06 Dose: 75 mcg Fentanyl (Sublimaze) 100 mcg IVPUSH ONETIME ONE Stop: 07/31/18 19:11 Last Admin: 07/31/18 19:42 Dose: 100 mcg Fentanyl (Sublimaze) 100 mcg IVPUSH ONETIME ONE Stop: 07/31/18 21:34 Last Admin: 07/31/18 21:41 Dose: 100 mcg Fentanyl (Sublimaze) Confirm Administered Dose 100 mcg .ROUTE .STK-MED ONE Stop: 07/31/18 21:39 Last Admin: 07/31/18 23:11 Dose: Not Given Fentanyl Citrate (Fentanyl In Ns 300 Mcg/30 Ml [employer]) 0 mcg IV ASDIRECTED ANITRA; Protocol Hydromorphone HCl (Dilaudid) 1 mg IVPUSH ONETIME ONE Stop: 07/31/18 09:35 Last Admin: 07/31/18 09:38 Dose: 1 mg Hydromorphone HCl (Dilaudid) 2 mg IVPUSH ONETIME ONE Stop: 07/31/18 10:40 Last Admin: 07/31/18 10:54 Dose: Not Given Hydromorphone HCl (Dilaudid) Confirm Administered Dose 2 mg .ROUTE .STK-MED ONE Stop: 07/31/18 10:44 Last Admin: 07/31/18 10:48 Dose: Not Given Hydromorphone HCl (Dilaudid) 2 mg IVPUSH ONETIME ONE Stop: 07/31/18 10:50 Last Admin: 07/31/18 10:54 Dose: Not Given Hydromorphone HCl (Dilaudid) 2 mg IVPUSH ONETIME ONE Stop: 07/31/18 10:53 Last Admin: 07/31/18 10:53 Dose: 2 mg Sodium Chloride (Normal Saline) 1,000 mls @ 999 mls/hr IV STAT ONE Stop: 07/31/18 08:31 Last Admin: 07/31/18 07:47 Dose: 999 mls/hr Potassium Chloride/Sodium Chloride (Normal Saline With 20 Meq Kcl) 1,000 mls @ 75 mls/hr IV ASDIRECTED ANITRA Last Admin: 08/01/18 08:14 Dose: 75 mls/hr Ketorolac Tromethamine (Toradol) 30 mg IVPUSH ONETIME ONE Stop: 07/31/18 12:19 Last Admin: 07/31/18 12:40 Dose: 30 mg Methylprednisolone Sodium Succinate (Solu-Medrol) 125 mg IVPUSH ONETIME ONE Stop: 07/31/18 12:35 Last Admin: 07/31/18 12:50 Dose: 125 mg Methylprednisolone Sodium Succinate (Solu-Medrol) 125 mg IVPUSH Q6H ANITRA Last Admin: 08/01/18 12:20 Dose: 125 mg Methylprednisolone Sodium Succinate (Solu-Medrol) 1,000 mg IVPUSH Q24H ANITRA Ondansetron HCl (Zofran) 8 mg IVPUSH ONETIME ONE Stop: 07/31/18 07:56 Last Admin: 07/31/18 07:56 Dose: 8 mg Ondansetron HCl (Zofran) Confirm Administered Dose 8 mg .ROUTE .STK-MED ONE Stop: 07/31/18 07:53 Last Admin: 07/31/18 07:57 Dose: Not Given Tizanidine HCl (Zanaflex) 8 mg PO Q8HR PRN PRN Reason: Other - Exam Quality Assessment: No: Supplemental Oxygen General: Alert, Oriented, Cooperative, Mild Distress HEENT: Pupils Equal, Pupils Reactive, EOMI Neck: Supple, Trachea Midline, No Thyromegaly Lungs: Clear to Auscultation, Normal Respiratory Effort Cardiovascular: Regular Rate, Regular Rhythm GI/Abdominal Exam: Normal Bowel Sounds, Soft, Non-Tender, No Distention (Female) Exam: Deferred Back Exam: Normal Inspection Extremities: Normal Inspection, Normal Range of Motion Skin: Warm, Dry, Intact Neurological: No New Focal Deficit. No: Normal Speech (Slurred speech present before admission) Psy/Mental Status: Alert, Normal Affect, Normal Mood - Problem List & Annotations (1) Multiple sclerosis SNOMED Code(s): 14366753 Code(s): G35 - MULTIPLE SCLEROSIS Status: Chronic Priority: High Current Visit: Yes Annotation/Comment:: Exacerbation (2) Hyperkalemia SNOMED Code(s): 89895168 Code(s): E87.5 - HYPERKALEMIA Status: Acute Priority: High Current Visit: Yes (3) Morbid obesity SNOMED Code(s): 133781566 Code(s): E66.01 - MORBID (SEVERE) OBESITY DUE TO EXCESS CALORIES Status: Chronic Priority: Medium Current Visit: Yes (4) Tobacco abuse SNOMED Code(s): 444089705 Code(s): Z72.0 - TOBACCO USE Status: Chronic Priority: Low Current Visit: Yes (5) Intractable pain SNOMED Code(s): 76234733 Code(s): R52 - PAIN, UNSPECIFIED Status: Suspected Priority: High Current Visit: Yes (6) Iron deficiency anemia SNOMED Code(s): 57245698 Code(s): D50.9 - IRON DEFICIENCY ANEMIA, UNSPECIFIED Status: Chronic Priority: Low Current Visit: Yes Qualifiers: Iron deficiency anemia type: inadequate dietary iron intake Qualified Code( s): D50.8 - Other iron deficiency anemias - Problem List Review Problem List Initiated/Reviewed/Updated: Yes - Plan Plan:: The patient is a 43-year-old lady had been admitted primarily out of concern for exacerbation of her multiple sclerosis. She has been evaluated by neurology and has been placed on 1 g of Solu-Medrol daily. This will be continued. Also the patient has a MRI of her brain and cervical spine scheduled for July. She had been previously kept nothing by mouth and her diet had been advanced. says that she is currently doing well with her pain regimen. For now also be continued. The patient does have a history of chronic anemia and with her latest CBC is noted to show hypochromasia with microcytosis consistent with iron deficiency. The patient's RDW is also increased which shows a response to her anemia. I've ordered a repeat CBC and metabolic panel for the morning. The patient's metabolic panel does show elevation of her potassium and for analysis will be monitored. Patient has been encouraged to ambulate. The patient will be kept in hospitalization primarily for pain control and high dose IV Solu-Medrol until her MRI. The patient has been recommended to continue with her current diet. She should follow up with her primary care physician with regards to her morbid obesity.
[2018-08-02] MEDS: Ketorolac 30 MG/ML SDV IVPUSH PRN ×2 (08:34→16:31)
[2018-08-02] MEDS: DULoxetine 60 MG Cap PO SCH (08:36)
[2018-08-02] MEDS: Pantoprazole 40 MG Tab.CR PO SCH ×2 (08:40→20:16)
[2018-08-02] MEDS: Folic Acid 1 MG Tab PO SCH (08:40)
[2018-08-02] MEDS: Ferrous Sulfate 325 MG Tab PO SCH (08:40)
[2018-08-02] MEDS: Lisinopril/Hydrochlorothiazide 10-12.5 MG Tab PO SCH (08:51)
[2018-08-02] MEDS: amLODIPine 5 MG Tab PO SCH (08:51)
[2018-08-02] MEDS: Polyethylene Glycol 3350 Powder 17 GM Packet PO PRN (10:25)
[2018-08-02] MEDS: Morphine PF 30 MG/30 ML PCA Vial IV SCH ×2 (14:55→20:12)
[2018-08-02] MEDS: Nortriptyline 25 MG Cap PO SCH (20:16)
[2018-08-02] MEDS: Docusate Sodium 100 MG Cap PO SCH (20:17)
[2018-08-02] MEDS: tiZANidine 4 MG Tab PO PRN (22:12)
[2018-08-03] MEDS: oxyCODONE 5 MG Tab PO PRN ×5 (03:11→21:42)
[2018-08-03] MEDS: Gabapentin 300 MG Cap PO SCH ×3 (05:26→21:42)
[2018-08-03] MEDS: Ketorolac 30 MG/ML SDV IVPUSH PRN ×3 (05:27→22:15)
[2018-08-03] MEDS: Morphine PF 30 MG/30 ML PCA Vial IV SCH ×3 (05:37→20:33)
[2018-08-03] MEDS: Lisinopril/Hydrochlorothiazide 10-12.5 MG Tab PO SCH (09:21)
[2018-08-03] MEDS: DULoxetine 60 MG Cap PO SCH (09:22)
[2018-08-03] MEDS: Ferrous Sulfate 325 MG Tab PO SCH (09:22)
[2018-08-03] MEDS: Folic Acid 1 MG Tab PO SCH (09:22)
[2018-08-03] MEDS: Pantoprazole 40 MG Tab.CR PO SCH ×2 (09:22→20:43)
[2018-08-03] MEDS: amLODIPine 5 MG Tab PO SCH (09:23)
[2018-08-03] MEDS: Polyethylene Glycol 3350 Powder 17 GM Packet PO PRN (09:36)
--- NOTE | 2018-08-03 09:42 | PCM.PN ---
- General Info Date of Service: 08/03/18 Admission Dx/Problem (Free Text): The patient is a 43-year-old lady who had been admitted to acute hospitalization on July 31, 2018 secondary to exacerbation of her underlying multiple sclerosis. The patient is scheduled for repeat MRI tomorrow. The patient says that her pain is somewhat better controlled except when she gets up to go the bathroom and she'll have worsening pain in her right lower leg. Patient also reports that she has had some worsening of the strength in her left arm. The patient however, says that the steroids seem to be helping. She has been tolerating diet. The patient says that her constipation has resolved. Subjective Update: The patient is a 43-year-old lady who had been admitted to acute hospitalization on July 31, 2008 pain after she noted to have severe burning right foot pain. The patient does have a history of multiple sclerosis and was diagnosed in 2013. The patient has been evaluated by neurology. Patient today says that she feels better. She still has 7 out of 10 pain in her right lower leg. The patient also has been complaining of constipation as well. She is denying any fever or chills. She's had no nausea or vomiting. Other than constipation the patient has no other complaints. Functional Status: Reports: Pain Controlled, Tolerating Diet, Ambulating - Review of Systems General: Reports: Weakness, Fatigue HEENT: Reports: No Symptoms Pulmonary: Reports: No Symptoms Cardiovascular: Reports: No Symptoms Gastrointestinal: Reports: No Symptoms Genitourinary: Reports: No Symptoms Musculoskeletal: Reports: Leg Pain Skin: Reports: No Symptoms Neurological: Reports: Paresthesia Psychiatric: Reports: Depression - Patient Data Vitals - Most Recent: Last Vital Signs Temp 37.1 C 08/03/18 04:00 Pulse 89 08/03/18 04:00 Resp 18 08/03/18 04:00 BP 122/67 08/03/18 09:23 Pulse Ox 96 08/03/18 04:00 Weight - Most Recent: 123.916 kg I&O - Last 24 Hours: Intake & Output 08/02/18 08/03/18 08/03/18 22:59 06:59 14:59 Intake Total 1000 300 Output Total 600 650 Balance 400 -350 Lab Results Last 24 Hours: Laboratory Results - last 24 hr 09/23/18 09/23/18 Range/Units 06:20 06:20 WBC 10.45 (4.0-11.0) K/uL RBC 3.46 L (4.30-5.90) M/uL Hgb 7.8 L (12.0-16.0) g/dL Hct 27.2 L (36.0-46.0) % MCV 78.6 L (80.0-98.0) fL MCH 22.5 L (27.0-32.0) pg MCHC 28.7 L (31.0-37.0) g/dL RDW Std Deviation 55.8 (28.0-62.0) fl RDW Coeff of Tramaine 22 H (11.0-15.0) % Plt Count 298 (150-400) K/uL MPV 8.90 (7.40-12.00) fL Neut % (Auto) 92.9 H (48.0-80.0) % Lymph % (Auto) 5.2 L (16.0-40.0) % Traverse % (Auto) 1.9 (0.0-15.0) % Eos % (Auto) 0.0 (0.0-7.0) % Baso % (Auto) 0.0 (0.0-1.5) % Neut # (Auto) 9.7 H (1.4-5.7) K/uL Lymph # (Auto) 0.5 L (0.6-2.4) K/uL Traverse # (Auto) 0.2 (0.0-0.8) K/uL Eos # (Auto) 0.0 (0.0-0.7) K/uL Baso # (Auto) 0.0 (0.0-0.1) K/uL Nucleated RBC % 0.2 /100WBC Nucleated RBCs # 0 K/uL Sodium 135 L (136-145) mmol/L Potassium 5.2 H (3.5-5.1) mmol/L Chloride 100 (98-107) mmol/L Carbon Dioxide 26.3 (21.0-32.0) mmol/L BUN 32 H (7.0-18.0) mg/dL Creatinine 1.2 H (0.6-1.0) mg/dL Est Cr Clr Drug Dosing 59.39 mL/min Estimated GFR (MDRD) 49.3 ml/min Glucose 127 H (74-106) mg/dL Calcium 9.0 (8.5-10.1) mg/dL Magnesium 2.0 (1.8-2.4) mg/dL Med Orders - Current: Current Medications Albuterol (Ventolin Hfa) 0 gm INH Q4H PRN PRN Reason: Shortness of Breath Amlodipine Besylate (Norvasc) 10 mg PO DAILY [facility] Last Admin: 08/03/18 09:23 Dose: 10 mg Bisacodyl (Dulcolax) 5 mg PO DAILY PRN PRN Reason: Constipation Docusate Sodium (Colace) 100 mg PO BEDTIME [facility] Last Admin: 08/02/18 20:17 Dose: Not Given Duloxetine HCl (Cymbalta) 60 mg PO DAILY [facility] Last Admin: 08/03/18 09:22 Dose: 60 mg Ferrous Sulfate (Ferrous Sulfate) 325 mg PO DAILY [facility] Last Admin: 08/03/18 09:22 Dose: 325 mg Folic Acid (Folic Acid) 1 mg PO DAILY [facility] Last Admin: 08/03/18 09:22 Dose: 1 mg Gabapentin (Neurontin) 900 mg PO TID [facility] Last Admin: 08/03/18 05:26 Dose: 900 mg Lisinopril/HCTZ (Lisinopril-Hctz 10-12.5 Mg) 2 tab PO DAILY [facility] Last Admin: 08/03/18 09:21 Dose: 2 tab Hydromorphone HCl (Dilaudid) 0.5 mg IVPUSH ONETIME PRN PRN Reason: Pain Last Admin: 07/31/18 07:47 Dose: 0.5 mg Methylprednisolone Sodium Succinate 1,000 mg/ Sodium Chloride 258 mls @ 258 mls /hr IV Q24H [facility] Last Admin: 08/02/18 16:26 Dose: 258 mls/hr Ketorolac Tromethamine (Toradol) 30 mg IVPUSH Q8H PRN PRN Reason: Pain Last Admin: 08/03/18 05:27 Dose: 30 mg Morphine Sulfate (Morphine Compliance Professional 30 Mg In 30 Ml) 30 mg IV ASDIRECTED [facility]; Protocol Last Admin: 08/03/18 05:37 Dose: 30 mg Nortriptyline HCl (Nortriptyline) 25 mg PO BEDTIME [facility] Last Admin: 08/02/18 20:16 Dose: 25 mg Ondansetron HCl (Zofran Odt) 4 mg PO Q4H PRN PRN Reason: nausea, able to take PO Oxycodone HCl (Oxycodone) 10 mg PO Q4H PRN PRN Reason: Pain Last Admin: 08/03/18 09:20 Dose: 10 mg Pantoprazole Sodium (Protonix) 40 mg PO BID [facility] Last Admin: 08/03/18 09:22 Dose: 40 mg Polyethylene Glycol (Miralax) 17 gm PO TID PRN PRN Reason: Constipation Last Admin: 08/03/18 09:36 Dose: 17 gm Temazepam (Restoril) 15 mg PO BEDTIME PRN PRN Reason: Sleep Tizanidine HCl (Zanaflex) 8 mg PO Q8H PRN PRN Reason: Other Last Admin: 08/02/18 22:12 Dose: 8 mg Zaleplon (Sonata) 5 mg PO BEDTIME [facility] Last Admin: 08/02/18 20:16 Dose: 5 mg Discontinued Medications Albuterol (Proventil Hfa) 0 gm INH Q4H PRN PRN Reason: Shortness of Breath Fentanyl (Sublimaze) 50 mcg IVPUSH Q1H PRN PRN Reason: Pain Last Admin: 07/31/18 18:17 Dose: 50 mcg Fentanyl (Sublimaze) 100 mcg IVPUSH ONETIME ONE Stop: 07/31/18 18:35 Last Admin: 07/31/18 19:14 Dose: Not Given Fentanyl (Sublimaze) 75 mcg IVPUSH Q1H PRN PRN Reason: Pain Last Admin: 08/01/18 11:06 Dose: 75 mcg Fentanyl (Sublimaze) 100 mcg IVPUSH ONETIME ONE Stop: 07/31/18 19:11 Last Admin: 07/31/18 19:42 Dose: 100 mcg Fentanyl (Sublimaze) 100 mcg IVPUSH ONETIME ONE Stop: 07/31/18 21:34 Last Admin: 07/31/18 21:41 Dose: 100 mcg Fentanyl (Sublimaze) Confirm Administered Dose 100 mcg .ROUTE .STK-MED ONE Stop: 07/31/18 21:39 Last Admin: 07/31/18 23:11 Dose: Not Given Fentanyl (Sublimaze) 75 mcg IVPUSH Q1H PRN PRN Reason: Pain Last Admin: 08/02/18 14:10 Dose: 75 mcg Fentanyl Citrate (Fentanyl In Ns 300 Mcg/30 Ml Compliance Professional) 0 mcg IV ASDIRECTED [facility]; Protocol Hydromorphone HCl (Dilaudid) 1 mg IVPUSH ONETIME ONE Stop: 07/31/18 09:35 Last Admin: 07/31/18 09:38 Dose: 1 mg Hydromorphone HCl (Dilaudid) 2 mg IVPUSH ONETIME ONE Stop: 07/31/18 10:40 Last Admin: 07/31/18 10:54 Dose: Not Given Hydromorphone HCl (Dilaudid) Confirm Administered Dose 2 mg .ROUTE .STK-MED ONE Stop: 07/31/18 10:44 Last Admin: 07/31/18 10:48 Dose: Not Given Hydromorphone HCl (Dilaudid) 2 mg IVPUSH ONETIME ONE Stop: 07/31/18 10:50 Last Admin: 07/31/18 10:54 Dose: Not Given Hydromorphone HCl (Dilaudid) 2 mg IVPUSH ONETIME ONE Stop: 07/31/18 10:53 Last Admin: 07/31/18 10:53 Dose: 2 mg Sodium Chloride (Normal Saline) 1,000 mls @ 999 mls/hr IV STAT ONE Stop: 07/31/18 08:31 Last Admin: 07/31/18 07:47 Dose: 999 mls/hr Potassium Chloride/Sodium Chloride (Normal Saline With 20 Meq Kcl) 1,000 mls @ 75 mls/hr IV ASDIRECTED [facility] Last Admin: 08/01/18 08:14 Dose: 75 mls/hr Ketorolac Tromethamine (Toradol) 30 mg IVPUSH ONETIME ONE Stop: 07/31/18 12:19 Last Admin: 07/31/18 12:40 Dose: 30 mg Methylprednisolone Sodium Succinate (Solu-Medrol) 125 mg IVPUSH ONETIME ONE Stop: 07/31/18 12:35 Last Admin: 07/31/18 12:50 Dose: 125 mg Methylprednisolone Sodium Succinate (Solu-Medrol) 125 mg IVPUSH Q6H [facility] Last Admin: 08/01/18 12:20 Dose: 125 mg Methylprednisolone Sodium Succinate (Solu-Medrol) 1,000 mg IVPUSH Q24H [facility] Ondansetron HCl (Zofran) 8 mg IVPUSH ONETIME ONE Stop: 07/31/18 07:56 Last Admin: 07/31/18 07:56 Dose: 8 mg Ondansetron HCl (Zofran) Confirm Administered Dose 8 mg .ROUTE .STK-MED ONE Stop: 07/31/18 07:53 Last Admin: 07/31/18 07:57 Dose: Not Given Tizanidine HCl (Zanaflex) 8 mg PO Q8HR PRN PRN Reason: Other - Exam Quality Assessment: No: Supplemental Oxygen, Urine Catheter General: Alert, Oriented, Cooperative, Mild Distress HEENT: Pupils Equal, Pupils Reactive Neck: Supple, Trachea Midline Lungs: Clear to Auscultation, Normal Respiratory Effort Cardiovascular: Regular Rate, Regular Rhythm GI/Abdominal Exam: Normal Bowel Sounds, Soft, No Distention (Female) Exam: Deferred Back Exam: Normal Inspection, Full Range of Motion Extremities: Normal Inspection, No Pedal Edema Skin: Warm, Dry, Intact Neurological: No New Focal Deficit, Normal Gait Psy/Mental Status: Alert, Normal Affect - Problem List & Annotations (1) Multiple sclerosis SNOMED Code(s): 00017991 Code(s): G35 - MULTIPLE SCLEROSIS Status: Chronic Priority: High Current Visit: Yes Annotation/Comment:: Exacerbation (2) Hyperkalemia SNOMED Code(s): 14775264 Code(s): E87.5 - HYPERKALEMIA Status: Acute Priority: High Current Visit: Yes Annotation/Comment:: Start Kayexalate (3) Morbid obesity SNOMED Code(s): 842820731 Code(s): E66.01 - MORBID (SEVERE) OBESITY DUE TO EXCESS CALORIES Status: Chronic Priority: Medium Current Visit: Yes (4) Tobacco abuse SNOMED Code(s): 435034096 Code(s): Z72.0 - TOBACCO USE Status: Chronic Priority: Low Current Visit: Yes (5) Intractable pain SNOMED Code(s): 88037861 Code(s): R52 - PAIN, UNSPECIFIED Status: Suspected Priority: High Current Visit: Yes (6) Iron deficiency anemia SNOMED Code(s): 52997553 Code(s): D50.9 - IRON DEFICIENCY ANEMIA, UNSPECIFIED Status: Chronic Priority: Low Current Visit: Yes Qualifiers: Iron deficiency anemia type: inadequate dietary iron intake Qualified Code( s): D50.8 - Other iron deficiency anemias - Problem List Review Problem List Initiated/Reviewed/Updated: Yes - My Orders Last 24 Hours: My Active Orders 08/02/18 09:45 Polyethylene Glycol 3350 [MiraLAX] 17 gm PO TID PRN 08/02/18 13:00 Morphine PF [Morphine AUTOMOTIVE GENERATOR REPAIRER 30 MG in 30 ML] 30 mg IV ASDIRECTED - Plan Plan:: The patient is a 43-year-old lady who been admitted secondary to exacerbation of her multiple sclerosis. The patient has been evaluated by neurology and she is currently pending tomorrow MRI and MRA of her brain. She has been placed on 1 g of Solu-Medrol IV daily and this seems to be helping her minimally. The patient says that she is doing better and her pain is somewhat better controlled. The patient has remained anemic with this current CBC and if the patient's hemoglobin drops was 7.0 g/dL we'll consider transfusion. Her BUN/ creatinine have also remained unchanged essentially and I've ordered a repeat metabolic panel for the morning. The patient says that her pain is better better controlled. She does have elevation of her potassium at 5.2 mmol per liter and I've also ordered 1 dose of Kayexalate to reduce this. Repeat laboratory studies have been ordered for the morning. The patient has been encouraged to continue to ambulate. She should be appropriate for discharge in 1 -2 days.
[2018-08-03] MEDS: Sodium Polystyrene Sulfonate 15 GM/60 ML Susp 60 ML Bot PO ONE ×2 (13:05→16:34)
[2018-08-03] MEDS: Docusate Sodium 100 MG Cap PO SCH (20:43)
[2018-08-03] MEDS: Nortriptyline 25 MG Cap PO SCH (21:42)
[2018-08-03] MEDS: tiZANidine 4 MG Tab PO PRN (21:42)
[2018-08-04] MEDS: oxyCODONE 5 MG Tab PO PRN ×3 (04:12→15:04)
[2018-08-04] MEDS: Gabapentin 300 MG Cap PO SCH ×2 (06:37→13:55)
[2018-08-04] MEDS: Ketorolac 30 MG/ML SDV IVPUSH PRN (07:54)
--- NOTE | 2018-08-04 09:07 | PCM.PN ---
<Brooks Parker - Last Filed: 08/04/18 09:01> - General Info Date of Service: 08/04/18 Subjective Update: Eusebia Gamboa is a 43 y/o female with a history of MS who was admitted for an MS exacerbation. Currently, receiving IV methylprednisolone and pain medications. This morning the patient continues to complain of right foot pain which some numbness, burning sensation. However, she states she feels better compared to admission day. Currently rates the pain 7/10, down from 10/10. Denies any change in vision, chest pain, shortness of breath. No abdominal pain. She does endorse some constipation. No blood in stool. - Review of Systems General: Reports: No Symptoms HEENT: Reports: No Symptoms Pulmonary: Reports: No Symptoms Cardiovascular: Reports: No Symptoms Gastrointestinal: Reports: No Symptoms Genitourinary: Reports: No Symptoms Musculoskeletal: Reports: No Symptoms Skin: Reports: No Symptoms Neurological: Reports: Numbness, Paresthesia (on right foot.) Psychiatric: Reports: No Symptoms - Patient Data Vitals - Most Recent: Last Vital Signs Temp 37.1 C 08/04/18 04:00 Pulse 89 08/04/18 04:00 Resp 20 08/04/18 04:00 BP 121/86 08/04/18 04:00 Pulse Ox 97 08/04/18 04:00 Weight - Most Recent: 123.916 kg I&O - Last 24 Hours: Intake & Output 08/03/18 08/04/18 08/04/18 22:59 06:59 14:59 Intake Total 1250 200 Output Total 400 Balance 1250 -200 Lab Results Last 24 Hours: Laboratory Results - last 24 hr 08/04/18 Range/Units 07:50 WBC 12.99 H (4.0-11.0) K/uL RBC 3.41 L (4.30-5.90) M/uL Hgb 7.7 L (12.0-16.0) g/dL Hct 26.6 L (36.0-46.0) % MCV 78.0 L (80.0-98.0) fL MCH 22.6 L (27.0-32.0) pg MCHC 28.9 L (31.0-37.0) g/dL RDW Std Deviation 55.6 (28.0-62.0) fl RDW Coeff of Tramaine 22 H (11.0-15.0) % Plt Count 274 (150-400) K/uL MPV 8.80 (7.40-12.00) fL Nucleated RBC % 0.3 /100WBC Nucleated RBCs # 0 K/uL Med Orders - Current: Current Medications Albuterol (Ventolin Hfa) 0 gm INH Q4H PRN PRN Reason: Shortness of Breath Amlodipine Besylate (Norvasc) 10 mg PO DAILY [facility] Last Admin: 08/03/18 09:23 Dose: 10 mg Bisacodyl (Dulcolax) 5 mg PO DAILY PRN PRN Reason: Constipation Docusate Sodium (Colace) 100 mg PO BEDTIME [facility] Last Admin: 08/03/18 20:43 Dose: 100 mg Duloxetine HCl (Cymbalta) 60 mg PO DAILY [facility] Last Admin: 08/03/18 09:22 Dose: 60 mg Ferrous Sulfate (Ferrous Sulfate) 325 mg PO DAILY [facility] Last Admin: 08/03/18 09:22 Dose: 325 mg Folic Acid (Folic Acid) 1 mg PO DAILY [facility] Last Admin: 08/03/18 09:22 Dose: 1 mg Gabapentin (Neurontin) 900 mg PO TID [facility] Last Admin: 08/04/18 06:37 Dose: 900 mg Lisinopril/HCTZ (Lisinopril-Hctz 10-12.5 Mg) 2 tab PO DAILY [facility] Last Admin: 08/03/18 09:21 Dose: 2 tab Hydromorphone HCl (Dilaudid) 0.5 mg IVPUSH ONETIME PRN PRN Reason: Pain Last Admin: 07/31/18 07:47 Dose: 0.5 mg Methylprednisolone Sodium Succinate 1,000 mg/ Sodium Chloride 258 mls @ 258 mls /hr IV Q24H [facility] Last Admin: 08/03/18 16:35 Dose: 258 mls/hr Ketorolac Tromethamine (Toradol) 30 mg IVPUSH Q8H PRN PRN Reason: Pain Last Admin: 08/04/18 07:54 Dose: 30 mg Morphine Sulfate (Morphine Programming Intern 30 Mg In 30 Ml) 30 mg IV ASDIRECTED [facility]; Protocol Last Admin: 08/03/18 20:33 Dose: 30 mg Nortriptyline HCl (Nortriptyline) 25 mg PO BEDTIME [facility] Last Admin: 08/03/18 21:42 Dose: 25 mg Ondansetron HCl (Zofran Odt) 4 mg PO Q4H PRN PRN Reason: nausea, able to take PO Oxycodone HCl (Oxycodone) 10 mg PO Q4H PRN PRN Reason: Pain Last Admin: 08/04/18 04:12 Dose: 10 mg Pantoprazole Sodium (Protonix) 40 mg PO BID [facility] Last Admin: 08/03/18 20:43 Dose: 40 mg Polyethylene Glycol (Miralax) 17 gm PO TID PRN PRN Reason: Constipation Last Admin: 08/03/18 09:36 Dose: 17 gm Temazepam (Restoril) 15 mg PO BEDTIME PRN PRN Reason: Sleep Tizanidine HCl (Zanaflex) 8 mg PO Q8H PRN PRN Reason: Other Last Admin: 08/03/18 21:42 Dose: 8 mg Zaleplon (Sonata) 5 mg PO BEDTIME [facility] Last Admin: 08/03/18 20:43 Dose: 5 mg Discontinued Medications Albuterol (Proventil Hfa) 0 gm INH Q4H PRN PRN Reason: Shortness of Breath Fentanyl (Sublimaze) 50 mcg IVPUSH Q1H PRN PRN Reason: Pain Last Admin: 07/31/18 18:17 Dose: 50 mcg Fentanyl (Sublimaze) 100 mcg IVPUSH ONETIME ONE Stop: 07/31/18 18:35 Last Admin: 07/31/18 19:14 Dose: Not Given Fentanyl (Sublimaze) 75 mcg IVPUSH Q1H PRN PRN Reason: Pain Last Admin: 08/01/18 11:06 Dose: 75 mcg Fentanyl (Sublimaze) 100 mcg IVPUSH ONETIME ONE Stop: 07/31/18 19:11 Last Admin: 07/31/18 19:42 Dose: 100 mcg Fentanyl (Sublimaze) 100 mcg IVPUSH ONETIME ONE Stop: 07/31/18 21:34 Last Admin: 07/31/18 21:41 Dose: 100 mcg Fentanyl (Sublimaze) Confirm Administered Dose 100 mcg .ROUTE .STK-MED ONE Stop: 07/31/18 21:39 Last Admin: 07/31/18 23:11 Dose: Not Given Fentanyl (Sublimaze) 75 mcg IVPUSH Q1H PRN PRN Reason: Pain Last Admin: 08/02/18 14:10 Dose: 75 mcg Fentanyl Citrate (Fentanyl In Ns 300 Mcg/30 Ml Programming Intern) 0 mcg IV ASDIRECTED [facility]; Protocol Hydromorphone HCl (Dilaudid) 1 mg IVPUSH ONETIME ONE Stop: 07/31/18 09:35 Last Admin: 07/31/18 09:38 Dose: 1 mg Hydromorphone HCl (Dilaudid) 2 mg IVPUSH ONETIME ONE Stop: 07/31/18 10:40 Last Admin: 07/31/18 10:54 Dose: Not Given Hydromorphone HCl (Dilaudid) Confirm Administered Dose 2 mg .ROUTE .STK-MED ONE Stop: 07/31/18 10:44 Last Admin: 07/31/18 10:48 Dose: Not Given Hydromorphone HCl (Dilaudid) 2 mg IVPUSH ONETIME ONE Stop: 07/31/18 10:50 Last Admin: 07/31/18 10:54 Dose: Not Given Hydromorphone HCl (Dilaudid) 2 mg IVPUSH ONETIME ONE Stop: 07/31/18 10:53 Last Admin: 07/31/18 10:53 Dose: 2 mg Sodium Chloride (Normal Saline) 1,000 mls @ 999 mls/hr IV STAT ONE Stop: 07/31/18 08:31 Last Admin: 07/31/18 07:47 Dose: 999 mls/hr Potassium Chloride/Sodium Chloride (Normal Saline With 20 Meq Kcl) 1,000 mls @ 75 mls/hr IV ASDIRECTED [facility] Last Admin: 08/01/18 08:14 Dose: 75 mls/hr Ketorolac Tromethamine (Toradol) 30 mg IVPUSH ONETIME ONE Stop: 07/31/18 12:19 Last Admin: 07/31/18 12:40 Dose: 30 mg Methylprednisolone Sodium Succinate (Solu-Medrol) 125 mg IVPUSH ONETIME ONE Stop: 07/31/18 12:35 Last Admin: 07/31/18 12:50 Dose: 125 mg Methylprednisolone Sodium Succinate (Solu-Medrol) 125 mg IVPUSH Q6H [facility] Last Admin: 08/01/18 12:20 Dose: 125 mg Methylprednisolone Sodium Succinate (Solu-Medrol) 1,000 mg IVPUSH Q24H [facility] Ondansetron HCl (Zofran) 8 mg IVPUSH ONETIME ONE Stop: 07/31/18 07:56 Last Admin: 07/31/18 07:56 Dose: 8 mg Ondansetron HCl (Zofran) Confirm Administered Dose 8 mg .ROUTE .STK-MED ONE Stop: 07/31/18 07:53 Last Admin: 07/31/18 07:57 Dose: Not Given Sodium Polystyrene Sulfonate (Kayexalate) 15 gm PO ONETIME ONE Stop: 08/03/18 12:30 Last Admin: 08/03/18 16:34 Dose: 15 gm Tizanidine HCl (Zanaflex) 8 mg PO Q8HR PRN PRN Reason: Other - Exam General: Alert, Oriented HEENT: Pupils Equal, Pupils Reactive, EOMI, Mucous Membr. Moist/[place] Neck: Supple Lungs: Clear to Auscultation, Normal Respiratory Effort Cardiovascular: Regular Rate, Regular Rhythm GI/Abdominal Exam: Normal Bowel Sounds, Soft, Non-Tender, No Organomegaly, No Distention, No Abnormal Bruit, No Mass, Pelvis Stable (Female) Exam: Deferred Back Exam: Normal Inspection, Full Range of Motion Extremities: Normal Inspection, Normal Range of Motion, Non-Tender, No Pedal Edema, Normal Capillary Refill, Other (right foot pain, decreased sensation. Able to fully move right foot.) Skin: Warm, Dry, Intact Neurological: Cranial Nerves Intact Psy/Mental Status: Alert, Normal Affect, Normal Mood - Problem List & Annotations (1) Constipation SNOMED Code(s): 01961014 Code(s): K59.00 - CONSTIPATION, UNSPECIFIED Status: Acute - Problem List Review Problem List Initiated/Reviewed/Updated: Yes - Plan Plan:: 1. Multiple sclerosis exacerbation, improving. Will continue with methylprednisolne 1,000 mg IV daily for a total of 5 days. If patient goes home , she may be able to get IV steroids as outpatient. 2. Hyperkalemia, improving. Will continue to monitor. 3. Iron deficiency anemia, stable. Will order iron sucrose once. Will need to transfuse with 2 units PRBCS if Hg<7. 4. Constipation- Now BM since . Will schedule miralax BID. May need enema if no BM by today. Disposition: expect DC home in 1-2 days. <DeeDavid ramirez M - Last Filed: 08/05/18 11:44> - General Info Admission Dx/Problem (Free Text): I examined the patient independently of medical office professional instructor. Patient is scheduled for discharge later today. See discharge summary. - Patient Data Vitals - Most Recent: Last Vital Signs Temp 36.9 C 08/04/18 15:41 Pulse 85 08/04/18 15:41 Resp 18 08/04/18 15:41 BP 145/88 H 08/04/18 15:41 Pulse Ox 94 L 08/04/18 15:41 I&O - Last 24 Hours: Intake & Output 08/04/18 08/05/18 08/05/18 22:59 06:59 14:59 Intake Total 1320 Output Total 750 Balance 570 [place] Results Last 24 Hours: Microbiology 08/04/18 12:25 Stool Occult Blood (KWABENA) - Final Stool / Feces POSITIVE OCCULT BLOOD Med Orders - Current: Current Medications Discontinued Medications Albuterol (Proventil Hfa) 0 gm INH Q4H PRN PRN Reason: Shortness of Breath Albuterol (Ventolin Hfa) 0 gm INH Q4H PRN PRN Reason: Shortness of Breath Amlodipine Besylate (Norvasc) 10 mg PO DAILY [facility] Last Admin: 08/04/18 10:27 Dose: 10 mg Bisacodyl (Dulcolax) 5 mg PO DAILY PRN PRN Reason: Constipation Last Admin: 08/04/18 10:45 Dose: 5 mg Docusate Sodium (Colace) 100 mg PO BEDTIME [facility] Last Admin: 08/03/18 20:43 Dose: 100 mg Duloxetine HCl (Cymbalta) 60 mg PO DAILY [facility] Last Admin: 08/04/18 10:27 Dose: 60 mg Fentanyl (Sublimaze) 50 mcg IVPUSH Q1H PRN PRN Reason: Pain Last Admin: 07/31/18 18:17 Dose: 50 mcg Fentanyl (Sublimaze) 100 mcg IVPUSH ONETIME ONE Stop: 07/31/18 18:35 Last Admin: 07/31/18 19:14 Dose: Not Given Fentanyl (Sublimaze) 75 mcg IVPUSH Q1H PRN PRN Reason: Pain Last Admin: 08/01/18 11:06 Dose: 75 mcg Fentanyl (Sublimaze) 100 mcg IVPUSH ONETIME ONE Stop: 07/31/18 19:11 Last Admin: 07/31/18 19:42 Dose: 100 mcg Fentanyl (Sublimaze) 100 mcg IVPUSH ONETIME ONE Stop: 07/31/18 21:34 Last Admin: 07/31/18 21:41 Dose: 100 mcg Fentanyl (Sublimaze) Confirm Administered Dose 100 mcg .ROUTE .STK-MED ONE Stop: 07/31/18 21:39 Last Admin: 07/31/18 23:11 Dose: Not Given Fentanyl (Sublimaze) 75 mcg IVPUSH Q1H PRN PRN Reason: Pain Last Admin: 08/02/18 14:10 Dose: 75 mcg Fentanyl Citrate (Fentanyl In Ns 300 Mcg/30 Ml Programming Intern) 0 mcg IV ASDIRECTED [facility]; Protocol Ferrous Sulfate (Ferrous Sulfate) 325 mg PO DAILY [facility] Last Admin: 08/04/18 10:28 Dose: 325 mg Folic Acid (Folic Acid) 1 mg PO DAILY [facility] Last Admin: 08/04/18 10:27 Dose: 1 mg Gabapentin (Neurontin) 900 mg PO TID [facility] Last Admin: 08/04/18 13:55 Dose: 900 mg Lisinopril/HCTZ (Lisinopril-Hctz 10-12.5 Mg) 2 tab PO DAILY [facility] Last Admin: 08/04/18 10:27 Dose: 2 tab Hydromorphone HCl (Dilaudid) 0.5 mg IVPUSH ONETIME PRN PRN Reason: Pain Last Admin: 07/31/18 07:47 Dose: 0.5 mg Hydromorphone HCl (Dilaudid) 1 mg IVPUSH ONETIME ONE Stop: 07/31/18 09:35 Last Admin: 07/31/18 09:38 Dose: 1 mg Hydromorphone HCl (Dilaudid) 2 mg IVPUSH ONETIME ONE Stop: 07/31/18 10:40 Last Admin: 07/31/18 10:54 Dose: Not Given Hydromorphone HCl (Dilaudid) Confirm Administered Dose 2 mg .ROUTE .STK-MED ONE Stop: 07/31/18 10:44 Last Admin: 07/31/18 10:48 Dose: Not Given Hydromorphone HCl (Dilaudid) 2 mg IVPUSH ONETIME ONE Stop: 07/31/18 10:50 Last Admin: 07/31/18 10:54 Dose: Not Given Hydromorphone HCl (Dilaudid) 2 mg IVPUSH ONETIME ONE Stop: 07/31/18 10:53 Last Admin: 07/31/18 10:53 Dose: 2 mg Sodium Chloride (Normal Saline) 1,000 mls @ 999 mls/hr IV STAT ONE Stop: 07/31/18 08:31 Last Admin: 07/31/18 07:47 Dose: 999 mls/hr Potassium Chloride/Sodium Chloride (Normal Saline With 20 Meq Kcl) 1,000 mls @ 75 mls/hr IV ASDIRECTED [facility] Last Admin: 08/01/18 08:14 Dose: 75 mls/hr Methylprednisolone Sodium Succinate 1,000 mg/ Sodium Chloride 258 mls @ 258 mls /hr IV Q24H [facility] Last Admin: 08/04/18 16:19 Dose: 258 mls/hr Iron Sucrose 500 mg/ Sodium (Chloride) 275 mls @ 65 mls/hr IV ONETIME ONE Stop: 08/04/18 13:35 Last Admin: 08/04/18 10:28 Dose: 65 mls/hr Ketorolac Tromethamine (Toradol) 30 mg IVPUSH ONETIME ONE Stop: 07/31/18 12:19 Last Admin: 07/31/18 12:40 Dose: 30 mg Ketorolac Tromethamine (Toradol) 30 mg IVPUSH Q8H PRN PRN Reason: Pain Last Admin: 08/04/18 07:54 Dose: 30 mg Lidocaine (Lidoderm 5%) 700 mg TOP ONETIME ONE Stop: 08/04/18 14:14 Last Admin: 08/04/18 15:02 Dose: 700 mg Methylprednisolone Sodium Succinate (Solu-Medrol) 125 mg IVPUSH ONETIME ONE Stop: 07/31/18 12:35 Last Admin: 07/31/18 12:50 Dose: 125 mg Methylprednisolone Sodium Succinate (Solu-Medrol) 125 mg IVPUSH Q6H [facility] Last Admin: 08/01/18 12:20 Dose: 125 mg Methylprednisolone Sodium Succinate (Solu-Medrol) 1,000 mg IVPUSH Q24H [facility] Morphine Sulfate (Morphine Programming Intern 30 Mg In 30 Ml) 30 mg IV ASDIRECTED [facility]; Protocol Last Admin: 08/03/18 20:33 Dose: 30 mg Nortriptyline HCl (Nortriptyline) 25 mg PO BEDTIME [facility] Last Admin: 08/03/18 21:42 Dose: 25 mg Ondansetron HCl (Zofran) 8 mg IVPUSH ONETIME ONE Stop: 07/31/18 07:56 Last Admin: 07/31/18 07:56 Dose: 8 mg Ondansetron HCl (Zofran) Confirm Administered Dose 8 mg .ROUTE .STK-MED ONE Stop: 07/31/18 07:53 Last Admin: 07/31/18 07:57 Dose: Not Given Ondansetron HCl (Zofran Odt) 4 mg PO Q4H PRN PRN Reason: nausea, able to take PO Oxycodone HCl (Oxycodone) 10 mg PO Q4H PRN PRN Reason: Pain Last Admin: 08/04/18 15:04 Dose: 10 mg Pantoprazole Sodium (Protonix) 40 mg PO BID [facility] Last Admin: 08/04/18 10:28 Dose: 40 mg Polyethylene Glycol (Miralax) 17 gm PO TID PRN PRN Reason: Constipation Last Admin: 08/03/18 09:36 Dose: 17 gm Polyethylene Glycol (Miralax) 17 gm PO BID [facility] Last Admin: 08/04/18 10:25 Dose: 17 gm Sodium Polystyrene Sulfonate (Kayexalate) 15 gm PO ONETIME ONE Stop: 08/03/18 12:30 Last Admin: 08/03/18 16:34 Dose: 15 gm Temazepam (Restoril) 15 mg PO BEDTIME PRN PRN Reason: Sleep Tizanidine HCl (Zanaflex) 8 mg PO Q8HR PRN PRN Reason: Other Tizanidine HCl (Zanaflex) 8 mg PO Q8H PRN PRN Reason: Other Last Admin: 08/03/18 21:42 Dose: 8 mg Tramadol HCl (Ultram) 50 mg PO ONETIME ONE Stop: 08/04/18 10:54 Last Admin: 08/04/18 11:44 Dose: 50 mg Zaleplon (Sonata) 5 mg PO BEDTIME [facility] Last Admin: 08/03/18 20:43 Dose: 5 mg - Problem List & Annotations (1) Multiple sclerosis SNOMED Code(s): 08790572 Code(s): G35 - MULTIPLE SCLEROSIS Status: Chronic Priority: High Annotation/Comment:: Exacerbation (2) Hyperkalemia SNOMED Code(s): 53118923 Code(s): E87.5 - HYPERKALEMIA Status: Acute Priority: High Annotation/ Comment:: Start Kayexalate (3) Morbid obesity SNOMED Code(s): 811862871 Code(s): E66.01 - MORBID (SEVERE) OBESITY DUE TO EXCESS CALORIES Status: Chronic Priority: Medium (4) Tobacco abuse SNOMED Code(s): 382545204 Code(s): Z72.0 - TOBACCO USE Status: Chronic Priority: Low (5) Intractable pain SNOMED Code(s): 94167779 Code(s): R52 - PAIN, UNSPECIFIED Status: Suspected Priority: High (6) Iron deficiency anemia SNOMED Code(s): 17365082 Code(s): D50.9 - IRON DEFICIENCY ANEMIA, UNSPECIFIED Status: Chronic Priority: Low Qualifiers: Iron deficiency anemia type: inadequate dietary iron intake Qualified Code( s): D50.8 - Other iron deficiency anemias
[2018-08-04] MEDS ORDERED: Iron Sucrose Complex 500 MG in Sodium Chloride 0.9% 250 ML IV ONE (09:22)
[2018-08-04] MEDS ORDERED: Polyethylene Glycol 3350 Powder 17 GM Packet PO SCH (09:45)
[2018-08-04] MEDS: Folic Acid 1 MG Tab PO SCH (10:27)
[2018-08-04] MEDS: Lisinopril/Hydrochlorothiazide 10-12.5 MG Tab PO SCH (10:27)
[2018-08-04] MEDS: DULoxetine 60 MG Cap PO SCH (10:27)
[2018-08-04] MEDS: amLODIPine 5 MG Tab PO SCH (10:27)
[2018-08-04] MEDS: Pantoprazole 40 MG Tab.CR PO SCH (10:28)
[2018-08-04] MEDS: Ferrous Sulfate 325 MG Tab PO SCH (10:28)
[2018-08-04] MEDS ORDERED: traMADol 50 MG Tab PO ONE (10:53)
[2018-08-04] MEDS ORDERED: Lidocaine 5% 700 MG Patch TOP ONE (14:13)
--- NOTE | 2018-08-04 18:33 | PCM.DCSUM1 ---
<Brooks Parker - Last Filed: 08/04/18 18:03> Discharge Summary - Hospital Course Free Text/Narrative:: Admission date: 07/31/18 Discharge date: 08/04/18 Admission diagnosis: 1. Multiple sclerosis exacerbation 2. Right foot pain 3. Hyperkalemia 4. Iron deficiency anemia 5. Constipation Discharge diagnosis: 1. Multiple sclerosis exacerbation, improved. 2. Right foot pain. 3. Hyperkalemia, resolved. 4. Iron deficiency anemia, stable. 5. Constipation, resolved. Procedures: none Consults: 1. Neurology, Dr. Dill [facility] course: Eusebia Gamboa is a 43 y/o female with history of multiple sclerosis who presented to the ER complaining of right foot pain. She was admitted for an acute multiple sclerosis exacerbation. Neurology, Dr. Dill was consulted and recommended methylprednisolone 1,000 mg IV daily x 5 days. In addition to MRI brain, cervical, thoracic w/wo contrast. She will need to follow-up with Dr. Dill in 2-3 weeks after discharge. During the hospitalization, the patient continued to complain of right foot pain. It improved to 7/10 with pain medication, however, pain was still present and a lidocaine patch 5% was ordered and it seemed to help with her pain. The patient completed 4 doses of methylprednisolone and was provided with a prescription for methylprednisolone 1 ,000 mg IV once after discharge to complete a total of 5 days. In addition, the patient was found to have iron deficiency anemia. Patient denied any bloody stool and a stool hemocult was ordered but unable to obtain. Iron sucrose IV once. She was provided with a prescription for oxycodone 10 mg PO Q6H PRN #28 tablets. Diagnosis: Stroke: No - Discharge Data Discharge Date: 08/04/18 Discharge Disposition: Home, Self-Care 01 Condition: Good - Discharge Diagnosis/Problem(s) (1) Constipation SNOMED Code(s): 01644274 ICD Code: K59.00 - CONSTIPATION, UNSPECIFIED Status: Acute - Patient Summary/Data Consults: Consultations 08/01/18 11:44 Consult to Physician [CONS] Urgent - Patient Instructions Diet: Heart Healthy Diet Activity: As Tolerated Notify Provider of: Fever, Increased Pain, Swelling and Redness, Drainage, Nausea and/or Vomiting - Discharge Plan *PRESCRIPTION DRUG MONITORING PROGRAM REVIEWED*: Not Applicable *COPY OF PRESCRIPTION DRUG MONITORING REPORT IN PATIENT ANNETTE: Not Applicable Prescriptions/Med Rec: Lidocaine 5% [Lidoderm 5%] 1 patch TOP DAILY #14 patch oxyCODONE 10 mg PO Q6H PRN #28 tablet PRN Reason: Pain Home Medications: Home Meds Albuterol Sulfate [Proair Hfa] 1 puff INH ASDIRECTED PRN 07/27/18 [History] Biotin 1 tab PO BEDTIME 07/27/18 [History] Cyanocobalamin (Vitamin B-12) [Vitamin B-12] 2,500 mg PO DAILY 07/27/18 [History ] DULoxetine [Cymbalta] 60 mg PO BEDTIME 07/27/18 [History] Docusate Sodium 1 tab PO BEDTIME 07/27/18 [History] Eszopiclone 3 mg PO BEDTIME 07/27/18 [History] Ferrous Sulfate 325 mg PO DAILY 07/27/18 [History] Gabapentin [Neurontin] 900 mg PO TID 07/27/18 [History] Lisinopril/Hydrochlorothiazide [Lisinopril-Hctz 20-25 mg Tab] 1 tab PO DAILY [History] Nortriptyline 25 mg PO BEDTIME 07/27/18 [History] amLODIPine [Norvasc] 10 mg PO DAILY 07/27/18 [History] methylPREDNISolone [Medrol] 4 mg PO ASDIRECTED #1 dosepk 07/27/18 [Rx] tiZANidine [Zanaflex] 8 mg PO Q8HR PRN 07/27/18 [History] Lidocaine 5% [Lidoderm 5%] 1 patch TOP DAILY #14 patch 08/04/18 [Rx] oxyCODONE 10 mg PO Q6H PRN #28 tablet 08/04/18 [Rx] Patient Handouts: Oxycodone tablets or capsules, Neuropathic Pain, Lidocaine dermal patch, Multiple Sclerosis Referrals: Josee Dill MD [Physician] - 08/15/18 2:15 pm Jeffrey Watson MD [Ordering Only Provider] - 08/11/18 2:00 pm - Patient Data Vitals - Most Recent: Last Vital Signs Temp 36.9 C 08/04/18 15:41 Pulse 85 08/04/18 15:41 Resp 18 09/24/18 15:41 BP 145/88 H 08/04/18 15:41 Pulse Ox 94 L 08/04/18 15:41 Weight - Most Recent: 123.916 kg I&O - Last 24 hours: Intake & Output 08/04/18 08/04/18 08/04/18 06:59 14:59 22:59 Intake Total 200 500 Output Total 400 Balance -200 500 Lab Results - Last 24 hrs: Laboratory Results - last 24 hr 08/04/18 Range/Units 07:50 WBC 12.99 H (4.0-11.0) K/uL RBC 3.41 L (4.30-5.90) M/uL Hgb 7.7 L (12.0-16.0) g/dL Hct 26.6 L (36.0-46.0) % MCV 78.0 L (80.0-98.0) fL MCH 22.6 L (27.0-32.0) pg MCHC 28.9 L (31.0-37.0) g/dL RDW Std Deviation 55.6 (28.0-62.0) fl RDW Coeff of Tramaine 22 H (11.0-15.0) % Plt Count 274 (150-400) K/uL MPV 8.80 (7.40-12.00) fL Nucleated RBC % 0.3 /100WBC Nucleated RBCs # 0 K/uL [facility] Results - Last 24 hrs: Microbiology 08/04/18 12:25 Stool Occult Blood ([facility]KA) - Final Stool / Feces POSITIVE OCCULT BLOOD Med Orders - Current: Current Medications Albuterol (Ventolin Hfa) 0 gm INH Q4H PRN PRN Reason: Shortness of Breath Amlodipine Besylate (Norvasc) 10 mg PO DAILY [facility] Last Admin: 08/04/18 10:27 Dose: 10 mg Bisacodyl (Dulcolax) 5 mg PO DAILY PRN PRN Reason: Constipation Last Admin: 08/04/18 10:45 Dose: 5 mg Docusate Sodium (Colace) 100 mg PO BEDTIME [facility] Last Admin: 08/03/18 20:43 Dose: 100 mg Duloxetine HCl (Cymbalta) 60 mg PO DAILY [facility] Last Admin: 08/04/18 10:27 Dose: 60 mg Ferrous Sulfate (Ferrous Sulfate) 325 mg PO DAILY [facility] Last Admin: 08/04/18 10:28 Dose: 325 mg Folic Acid (Folic Acid) 1 mg PO DAILY [facility] Last Admin: 08/04/18 10:27 Dose: 1 mg Gabapentin (Neurontin) 900 mg PO TID [facility] Last Admin: 08/04/18 13:55 Dose: 900 mg Lisinopril/HCTZ (Lisinopril-Hctz 10-12.5 Mg) 2 tab PO DAILY [facility] Last Admin: 08/04/18 10:27 Dose: 2 tab Hydromorphone HCl (Dilaudid) 0.5 mg IVPUSH ONETIME PRN PRN Reason: Pain Last Admin: 07/31/18 07:47 Dose: 0.5 mg Methylprednisolone Sodium Succinate 1,000 mg/ Sodium Chloride 258 mls @ 258 mls /hr IV Q24H [facility] Last Admin: 08/04/18 16:19 Dose: 258 mls/hr Ketorolac Tromethamine (Toradol) 30 mg IVPUSH Q8H PRN PRN Reason: Pain Last Admin: 08/04/18 07:54 Dose: 30 mg Morphine Sulfate (Morphine Mate Ship 30 Mg In 30 Ml) 30 mg IV ASDIRECTED [facility]; Protocol Last Admin: 08/03/18 20:33 Dose: 30 mg Nortriptyline HCl (Nortriptyline) 25 mg PO BEDTIME [facility] Last Admin: 08/03/18 21:42 Dose: 25 mg Ondansetron HCl (Zofran Odt) 4 mg PO Q4H PRN PRN Reason: nausea, able to take PO Oxycodone HCl (Oxycodone) 10 mg PO Q4H PRN PRN Reason: Pain Last Admin: 08/04/18 15:04 Dose: 10 mg Pantoprazole Sodium (Protonix) 40 mg PO BID [facility] Last Admin: 08/04/18 10:28 Dose: 40 mg Polyethylene Glycol (Miralax) 17 gm PO BID [facility] Last Admin: 08/04/18 10:25 Dose: 17 gm Temazepam (Restoril) 15 mg PO BEDTIME PRN PRN Reason: Sleep Tizanidine HCl (Zanaflex) 8 mg PO Q8H PRN PRN Reason: Other Last Admin: 08/03/18 21:42 Dose: 8 mg Zaleplon (Sonata) 5 mg PO BEDTIME [facility] Last Admin: 08/03/18 20:43 Dose: 5 mg Discontinued Medications Albuterol (Proventil Hfa) 0 gm INH Q4H PRN PRN Reason: Shortness of Breath Fentanyl (Sublimaze) 50 mcg IVPUSH Q1H PRN PRN Reason: Pain Last Admin: 07/31/18 18:17 Dose: 50 mcg Fentanyl (Sublimaze) 100 mcg IVPUSH ONETIME ONE Stop: 07/31/18 18:35 Last Admin: 07/31/18 19:14 Dose: Not Given Fentanyl (Sublimaze) 75 mcg IVPUSH Q1H PRN PRN Reason: Pain Last Admin: 08/01/18 11:06 Dose: 75 mcg Fentanyl (Sublimaze) 100 mcg IVPUSH ONETIME ONE Stop: 07/31/18 19:11 Last Admin: 07/31/18 19:42 Dose: 100 mcg Fentanyl (Sublimaze) 100 mcg IVPUSH ONETIME ONE Stop: 07/31/18 21:34 Last Admin: 07/31/18 21:41 Dose: 100 mcg Fentanyl (Sublimaze) Confirm Administered Dose 100 mcg .ROUTE .STK-MED ONE Stop: 07/31/18 21:39 Last Admin: 07/31/18 23:11 Dose: Not Given Fentanyl (Sublimaze) 75 mcg IVPUSH Q1H PRN PRN Reason: Pain Last Admin: 08/02/18 14:10 Dose: 75 mcg Fentanyl Citrate (Fentanyl In Ns 300 Mcg/30 Ml Mate Ship) 0 mcg IV ASDIRECTED [facility]; Protocol Hydromorphone HCl (Dilaudid) 1 mg IVPUSH ONETIME ONE Stop: 07/31/18 09:35 Last Admin: 07/31/18 09:38 Dose: 1 mg Hydromorphone HCl (Dilaudid) 2 mg IVPUSH ONETIME ONE Stop: 07/31/18 10:40 Last Admin: 07/31/18 10:54 Dose: Not Given Hydromorphone HCl (Dilaudid) Confirm Administered Dose 2 mg .ROUTE .STK-MED ONE Stop: 07/31/18 10:44 Last Admin: 07/31/18 10:48 Dose: Not Given Hydromorphone HCl (Dilaudid) 2 mg IVPUSH ONETIME ONE Stop: 07/31/18 10:50 Last Admin: 09/20/18 10:54 Dose: Not Given Hydromorphone HCl (Dilaudid) 2 mg IVPUSH ONETIME ONE Stop: 07/31/18 10:53 Last Admin: 07/31/18 10:53 Dose: 2 mg Sodium Chloride (Normal Saline) 1,000 mls @ 999 mls/hr IV STAT ONE Stop: 07/31/18 08:31 Last Admin: 07/31/18 07:47 Dose: 999 mls/hr Potassium Chloride/Sodium Chloride (Normal Saline With 20 Meq Kcl) 1,000 mls @ 75 mls/hr IV ASDIRECTED [facility] Last Admin: 08/01/18 08:14 Dose: 75 mls/hr Iron Sucrose 500 mg/ Sodium (Chloride) 275 mls @ 65 mls/hr IV ONETIME ONE Stop: 08/04/18 13:35 Last Admin: 08/04/18 10:28 Dose: 65 mls/hr Ketorolac Tromethamine (Toradol) 30 mg IVPUSH ONETIME ONE Stop: 07/31/18 12:19 Last Admin: 07/31/18 12:40 Dose: 30 mg Lidocaine (Lidoderm 5%) 700 mg TOP ONETIME ONE Stop: 08/04/18 14:14 Last Admin: 08/04/18 15:02 Dose: 700 mg Methylprednisolone Sodium Succinate (Solu-Medrol) 125 mg IVPUSH ONETIME ONE Stop: 07/31/18 12:35 Last Admin: 07/31/18 12:50 Dose: 125 mg Methylprednisolone Sodium Succinate (Solu-Medrol) 125 mg IVPUSH Q6H [facility] Last Admin: 08/01/18 12:20 Dose: 125 mg Methylprednisolone Sodium Succinate (Solu-Medrol) 1,000 mg IVPUSH Q24H [facility] Ondansetron HCl (Zofran) 8 mg IVPUSH ONETIME ONE Stop: 07/31/18 07:56 Last Admin: 07/31/18 07:56 Dose: 8 mg Ondansetron HCl (Zofran) Confirm Administered Dose 8 mg .ROUTE .STK-MED ONE Stop: 07/31/18 07:53 Last Admin: 07/31/18 07:57 Dose: Not Given Polyethylene Glycol (Miralax) 17 gm PO TID PRN PRN Reason: Constipation Last Admin: 08/03/18 09:36 Dose: 17 gm Sodium Polystyrene Sulfonate (Kayexalate) 15 gm PO ONETIME ONE Stop: 08/03/18 12:30 Last Admin: 08/03/18 16:34 Dose: 15 gm Tizanidine HCl (Zanaflex) 8 mg PO Q8HR PRN PRN Reason: Other Tramadol HCl (Ultram) 50 mg PO ONETIME ONE Stop: 08/04/18 10:54 Last Admin: 08/04/18 11:44 Dose: 50 mg <DeeDavid ramirez - Last Filed: 08/05/18 11:43> Discharge Summary - Discharge Diagnosis/Problem(s) (1) Multiple sclerosis SNOMED Code(s): 17104980 ICD Code: G35 - MULTIPLE SCLEROSIS Status: Chronic Priority: High Problem Details: Exacerbation (2) Hyperkalemia SNOMED Code(s): 94198061 ICD Code: E87.5 - HYPERKALEMIA Status: Acute Priority: High Problem Details: Start Kayexalate (3) Morbid obesity SNOMED Code(s): 803299601 ICD Code: E66.01 - MORBID (SEVERE) OBESITY DUE TO EXCESS CALORIES Status: Chronic Priority: Medium (4) Tobacco abuse SNOMED Code(s): 445432669 ICD Code: Z72.0 - TOBACCO USE Status: Chronic Priority: Low (5) Intractable pain SNOMED Code(s): 43201772 ICD Code: R52 - PAIN, UNSPECIFIED Status: Suspected Priority: High (6) Iron deficiency anemia SNOMED Code(s): 16782441 ICD Code: D50.9 - IRON DEFICIENCY ANEMIA, UNSPECIFIED Status: Chronic Priority: Low Qualifiers: Iron deficiency anemia type: inadequate dietary iron intake Qualified Code( s): D50.8 - Other iron deficiency anemias - Patient Summary/Data Consults: Consultations 08/01/18 11:44 Consult to Physician [CONS] Urgent - Discharge Summary/Plan Comment Discharge Summary/Plan Comment: The patient is a 43-year-old lady who had been admitted secondary to exacerbation of her multiple sclerosis. I examined the patient independently of medical or surgical instrument maker. I agree with his assessment and plan of care. The patient should have at least 2 more days of IV steroids and she has been discharge after MRI obtained. The patient is to follow with neurology for further evaluation and possible treatment. Please see orders. She also has been strongly counseled with regards to smoking cessation. - Patient Data Vitals - Most Recent: Last Vital Signs Temp 36.9 C 08/04/18 15:41 Pulse 85 08/04/18 15:41 Resp 18 08/04/18 15:41 BP 145/88 H 08/04/18 15:41 Pulse Ox 94 L 08/04/18 15:41 I&O - Last 24 hours: Intake & Output 08/04/18 08/05/18 08/05/18 22:59 06:59 14:59 Intake Total 1320 Output Total 750 Balance 570 [facility] Results - Last 24 hrs: Microbiology 08/04/18 12:25 Stool Occult Blood ([facility]) - Final Stool / Feces POSITIVE OCCULT BLOOD Med Orders - Current: Current Medications Discontinued Medications Albuterol (Proventil Hfa) 0 gm INH Q4H PRN PRN Reason: Shortness of Breath Albuterol (Ventolin Hfa) 0 gm INH Q4H PRN PRN Reason: Shortness of Breath Amlodipine Besylate (Norvasc) 10 mg PO DAILY [facility] Last Admin: 08/04/18 10:27 Dose: 10 mg Bisacodyl (Dulcolax) 5 mg PO DAILY PRN PRN Reason: Constipation Last Admin: 08/04/18 10:45 Dose: 5 mg Docusate Sodium (Colace) 100 mg PO BEDTIME [facility] Last Admin: 08/03/18 20:43 Dose: 100 mg Duloxetine HCl (Cymbalta) 60 mg PO DAILY [facility] Last Admin: 08/04/18 10:27 Dose: 60 mg Fentanyl (Sublimaze) 50 mcg IVPUSH Q1H PRN PRN Reason: Pain Last Admin: 07/31/18 18:17 Dose: 50 mcg Fentanyl (Sublimaze) 100 mcg IVPUSH ONETIME ONE Stop: 07/31/18 18:35 Last Admin: 07/31/18 19:14 Dose: Not Given Fentanyl (Sublimaze) 75 mcg IVPUSH Q1H PRN PRN Reason: Pain Last Admin: 08/01/18 11:06 Dose: 75 mcg Fentanyl (Sublimaze) 100 mcg IVPUSH ONETIME ONE Stop: 07/31/18 19:11 Last Admin: 07/31/18 19:42 Dose: 100 mcg Fentanyl (Sublimaze) 100 mcg IVPUSH ONETIME ONE Stop: 07/31/18 21:34 Last Admin: 07/31/18 21:41 Dose: 100 mcg Fentanyl (Sublimaze) Confirm Administered Dose 100 mcg .ROUTE .STK-MED ONE Stop: 07/31/18 21:39 Last Admin: 07/31/18 23:11 Dose: Not Given Fentanyl (Sublimaze) 75 mcg IVPUSH Q1H PRN PRN Reason: Pain Last Admin: 08/02/18 14:10 Dose: 75 mcg Fentanyl Citrate (Fentanyl In Ns 300 Mcg/30 Ml Mate Ship) 0 mcg IV ASDIRECTED [facility]; Protocol Ferrous Sulfate (Ferrous Sulfate) 325 mg PO DAILY [facility] Last Admin: 08/04/18 10:28 Dose: 325 mg Folic Acid (Folic Acid) 1 mg PO DAILY [facility] Last Admin: 08/04/18 10:27 Dose: 1 mg Gabapentin (Neurontin) 900 mg PO TID [facility] Last Admin: 08/04/18 13:55 Dose: 900 mg Lisinopril/HCTZ (Lisinopril-Hctz 10-12.5 Mg) 2 tab PO DAILY [facility] Last Admin: 08/04/18 10:27 Dose: 2 tab Hydromorphone HCl (Dilaudid) 0.5 mg IVPUSH ONETIME PRN PRN Reason: Pain Last Admin: 07/31/18 07:47 Dose: 0.5 mg Hydromorphone HCl (Dilaudid) 1 mg IVPUSH ONETIME ONE Stop: 07/31/18 09:35 Last Admin: 07/31/18 09:38 Dose: 1 mg Hydromorphone HCl (Dilaudid) 2 mg IVPUSH ONETIME ONE Stop: 07/31/18 10:40 Last Admin: 07/31/18 10:54 Dose: Not Given Hydromorphone HCl (Dilaudid) Confirm Administered Dose 2 mg .ROUTE .STK-MED ONE Stop: 07/31/18 10:44 Last Admin: 07/31/18 10:48 Dose: Not Given Hydromorphone HCl (Dilaudid) 2 mg IVPUSH ONETIME ONE Stop: 07/31/18 10:50 Last Admin: 07/31/18 10:54 Dose: Not Given Hydromorphone HCl (Dilaudid) 2 mg IVPUSH ONETIME ONE Stop: 07/31/18 10:53 Last Admin: 07/31/18 10:53 Dose: 2 mg Sodium Chloride (Normal Saline) 1,000 mls @ 999 mls/hr IV STAT ONE Stop: 07/31/18 08:31 Last Admin: 07/31/18 07:47 Dose: 999 mls/hr Potassium Chloride/Sodium Chloride (Normal Saline With 20 Meq Kcl) 1,000 mls @ 75 mls/hr IV ASDIRECTED [facility] Last Admin: 08/01/18 08:14 Dose: 75 mls/hr Methylprednisolone Sodium Succinate 1,000 mg/ Sodium Chloride 258 mls @ 258 mls /hr IV Q24H [facility] Last Admin: 08/04/18 16:19 Dose: 258 mls/hr Iron Sucrose 500 mg/ Sodium (Chloride) 275 mls @ 65 mls/hr IV ONETIME ONE Stop: 08/04/18 13:35 Last Admin: 08/04/18 10:28 Dose: 65 mls/hr Ketorolac Tromethamine (Toradol) 30 mg IVPUSH ONETIME ONE Stop: 07/31/18 12:19 Last Admin: 07/31/18 12:40 Dose: 30 mg Ketorolac Tromethamine (Toradol) 30 mg IVPUSH Q8H PRN PRN Reason: Pain Last Admin: 08/04/18 07:54 Dose: 30 mg Lidocaine (Lidoderm 5%) 700 mg TOP ONETIME ONE Stop: 08/04/18 14:14 Last Admin: 08/04/18 15:02 Dose: 700 mg Methylprednisolone Sodium Succinate (Solu-Medrol) 125 mg IVPUSH ONETIME ONE Stop: 07/31/18 12:35 Last Admin: 07/31/18 12:50 Dose: 125 mg Methylprednisolone Sodium Succinate (Solu-Medrol) 125 mg IVPUSH Q6H [facility] Last Admin: 08/01/18 12:20 Dose: 125 mg Methylprednisolone Sodium Succinate (Solu-Medrol) 1,000 mg IVPUSH Q24H [facility] Morphine Sulfate (Morphine Mate Ship 30 Mg In 30 Ml) 30 mg IV ASDIRECTED [facility]; Protocol Last Admin: 08/03/18 20:33 Dose: 30 mg Nortriptyline HCl (Nortriptyline) 25 mg PO BEDTIME [facility] Last Admin: 08/03/18 21:42 Dose: 25 mg Ondansetron HCl (Zofran) 8 mg IVPUSH ONETIME ONE Stop: 07/31/18 07:56 Last Admin: 07/31/18 07:56 Dose: 8 mg Ondansetron HCl (Zofran) Confirm Administered Dose 8 mg .ROUTE .STK-MED ONE Stop: 07/31/18 07:53 Last Admin: 07/31/18 07:57 Dose: Not Given Ondansetron HCl (Zofran Odt) 4 mg PO Q4H PRN PRN Reason: nausea, able to take PO Oxycodone HCl (Oxycodone) 10 mg PO Q4H PRN PRN Reason: Pain Last Admin: 08/04/18 15:04 Dose: 10 mg Pantoprazole Sodium (Protonix) 40 mg PO BID [facility] Last Admin: 08/04/18 10:28 Dose: 40 mg Polyethylene Glycol (Miralax) 17 gm PO TID PRN PRN Reason: Constipation Last Admin: 08/03/18 09:36 Dose: 17 gm Polyethylene Glycol (Miralax) 17 gm PO BID [facility] Last Admin: 08/04/18 10:25 Dose: 17 gm Sodium Polystyrene Sulfonate (Kayexalate) 15 gm PO ONETIME ONE Stop: 08/03/18 12:30 Last Admin: 08/03/18 16:34 Dose: 15 gm Temazepam (Restoril) 15 mg PO BEDTIME PRN PRN Reason: Sleep Tizanidine HCl (Zanaflex) 8 mg PO Q8HR PRN PRN Reason: Other Tizanidine HCl (Zanaflex) 8 mg PO Q8H PRN PRN Reason: Other Last Admin: 08/03/18 21:42 Dose: 8 mg Tramadol HCl (Ultram) 50 mg PO ONETIME ONE Stop: 08/04/18 10:54 Last Admin: 08/04/18 11:44 Dose: 50 mg Zaleplon (Sonata) 5 mg PO BEDTIME [facility] Last Admin: 08/03/18 20:43 Dose: 5 mg
== END 2018-08-04 17:30 | disposition home or self-care (01) ==
LOC: MW.ED 07:27 → MW.MS 13:30
PROVIDERS: ADMIT Family Medicine; ATTEND Family Medicine
DX: G35 Multiple sclerosis (principal); E87.5 Hyperkalemia; D50.9 Iron deficiency anemia, unspecified; K59.00 Constipation, unspecified; I12.9 Hypertensive chronic kidney disease with stage 1 through stage 4 chronic kidney disease, or unspecified chronic kidney disease; N18.9 Chronic kidney disease, unspecified; E66.01 Morbid (severe) obesity due to excess calories; F17.210 Nicotine dependence, cigarettes, uncomplicated; F41.9 Anxiety disorder, unspecified; F32.9 Major depressive disorder, single episode, unspecified; Z79.899 Other long term (current) drug therapy
CPT/HCPCS: 36415; 71045; 80048; 80053; 81001; 82272; 82607; 82728; 82746; 83550; 83735; 84484; 84702; 85025; 85027; 85045; 85610; 93005; 93922; 93971; 96361; 96365; 96366; 96367; 96374; 96375; 96376; 99284; A9270; G0378; J1170; J1756; J1885; J2274; J2405; J2930; J3010; J3480; J7040; J7050

== ENCOUNTER 2018-08-07 21:37 | Emergency (ER) | payer SELFPAY ==
--- NOTE | 2018-08-07 21:48 | EDM.PDOC ---
ED HPI GENERAL MEDICAL PROBLEM - General Stated Complaint: PT RT FT AND LT ARM HURTING Time Seen by Provider: 08/07/18 21:48 Source of Information: Reports: Patient History Limitations: Reports: No Limitations - History of Present Illness INITIAL COMMENTS - FREE TEXT/NARRATIVE: HISTORY AND PHYSICAL: History of present illness: 43-year-old female presenting [facility] to department with acute on chronic right foot pain with past medical history of multiple sclerosis. Patient states that she was just discharged from the hospital on 08/04/18 for a MS exacerbation. That time she was placed on steroid treatment and did see Dr. Dill, neurologist while she was in the hospital. She has a follow-up appointment with her in 2 weeks. States that she was discharged with oxycodone 10 mg #28 but has completely used them up secondary to increasing right lower foot pain. States that she also has noticed that her pinky toe has been changing colors to purple. Pain is constant and 10 out of 10. She also has some left arm pain that she states is for either 10. This is similar to when she was in the hospital. Does state that she did have right foot pain when she was in the hospital but it is more severe. Denies any trauma to the extremity. Denies any associated fever, chills, nausea, vomiting, abdominal pain, or diarrhea. Patient was diagnosed with multiple sclerosis last January in [facility]. She has not seen a neurologist here other than when she was recently in the hospital. On exam there is slight discoloration to the right fifth digit. There is some purplish to the lateral aspect. Difficult to assess peripheral pulses in extremity. Initial CBC shows leukocytosis of 17,000 most likely secondary to recent steroid use as patient has been afebrile. Lactate elevated at 2.2, d-dimer elevated to 1.13 Hugh detectable flow using hand-held Doppler device within the right lower extremity. On additional exams there is increasing discoloration to the right lower foot as well as some swelling. Review of systems: As per history of present illness and below otherwise all systems reviewed and negative. Past medical history: As per history of present illness and as reviewed below otherwise noncontributory. Surgical history: As per history of present illness and as reviewed below otherwise noncontributory. Social history: No reported history of drug or alcohol abuse. Family history: As per history of present illness and as reviewed below otherwise noncontributory. Physical exam: HEENT: Atraumatic, normocephalic, pupils reactive, negative for conjunctival pallor or scleral icterus, mucous membranes moist, throat clear, neck supple, nontender, trachea midline. Lungs: Clear to auscultation, breath sounds equal bilaterally, chest nontender. Heart: S1S2, regular, negative for clicks, rubs, or JVD. Abdomen: Soft, nondistended, nontender. Negative for masses or hepatosplenomegaly. Negative for costovertebral tenderness. Pelvis: Stable nontender. Genitourinary: Deferred. Rectal: Deferred. Extremities: Atraumatic, negative for cords or calf pain. Neurovascular unremarkable. Neuro: Awake, alert, oriented. Cranial nerves II through XII unremarkable. Cerebellum unremarkable. Motor and sensory unremarkable throughout. Exam nonfocal. Diagnostics: CBC, CMP, d-dimer, INR, right foot x-ray, ultrasound right foot, TERESA lower extremities Therapeutics: 1 L normal saline, 2 mg morphine IV 1, Dilaudid 1 mg IV 2, fentanyl 50 g IV 1 Impression: Right foot pain History MS Acute lower extremity ischemia Plan: Secondary to acute lower ischemia did call and talk to general surgery Dr. Leyva in [place] and advised of the patient. In addition I called and talked to Dr. Estevez, , [facility] who accepted the patient for acute lower extremity ischemia. Definitive disposition and diagnosis as appropriate pending reevaluation and review of above. right foor, left arm Pain Score (Numeric/FACES): 10 - Related Data Allergies Allergy/AdvReac Type Severity Reaction Status Date / Time No Known Allergies Allergy Verified 08/07/18 21:53 Home Meds: Home Meds Albuterol Sulfate [Proair Hfa] 1 puff INH ASDIRECTED PRN 07/27/18 [History] Biotin 1 tab PO BEDTIME 07/27/18 [History] Cyanocobalamin (Vitamin B-12) [Vitamin B-12] 2,500 mg PO DAILY 07/27/18 [History ] DULoxetine [Cymbalta] 60 mg PO BEDTIME 07/27/18 [History] Docusate Sodium 1 tab PO BEDTIME 07/27/18 [History] Eszopiclone 3 mg PO BEDTIME 07/27/18 [History] Ferrous Sulfate 325 mg PO DAILY 07/27/18 [History] Gabapentin [Neurontin] 900 mg PO TID 07/27/18 [History] Lisinopril/Hydrochlorothiazide [Lisinopril-Hctz 20-25 mg Tab] 1 tab PO DAILY [History] Nortriptyline 25 mg PO BEDTIME 07/27/18 [History] amLODIPine [Norvasc] 10 mg PO DAILY 07/27/18 [History] methylPREDNISolone [Medrol] 4 mg PO ASDIRECTED #1 dosepk 07/27/18 [Rx] tiZANidine [Zanaflex] 8 mg PO Q8HR PRN 07/27/18 [History] Lidocaine 5% [Lidoderm 5%] 1 patch TOP DAILY #14 patch 08/04/18 [Rx] oxyCODONE 10 mg PO Q6H PRN #28 tablet 08/04/18 [Rx] Past Medical History Cardiovascular History: Reports: Hypertension Respiratory History: Reports: Other (See Below) (bronchospasm; treated with albuterol MDI) Neurological History: Reports: Migraines, TIA, Other (See Below) Other Neuro History: MS Psychiatric History: Reports: Anxiety, Depression - Infectious Disease History Infectious Disease History: Reports: Chicken Pox Social & Family History - Family History Family Medical History: Noncontributory HEENT: Reports: None Cardiac: Reports: None Respiratory: Reports: None - Caffeine Use Caffeine Use: Reports: Coffee, Energy Drinks, Soda, Tea ED ROS GENERAL - Review of Systems Review Of Systems: ROS reveals no pertinent complaints other than HPI. ED EXAM, GENERAL - Physical Exam Exam: See Below Course - Vital Signs Last Recorded V/S: Last Vital Signs Temp 98.9 F 08/07/18 21:53 Pulse 116 H 08/07/18 23:12 Resp 20 08/07/18 23:12 BP 147/88 H 08/07/18 23:12 Pulse Ox 97 08/07/18 23:12 - Orders/Labs/Meds Orders: Active Orders 24 hr Category Date Time Status Art Duplex Lwr Ext Ltd [US] Stat Exams 08/08/18 00:08 Taken CV Ankle Brachial Index (TERESA) [US] Stat Exams 08/08/18 00:39 Taken Foot Comp Min 3V Rt [CR] Stat Exams 08/08/18 00:00 Taken Labs: Laboratory Tests 08/07/18 08/07/18 08/07/18 Range/Units 22:00 22:05 22:05 WBC 17.90 H (4.0-11.0) K/uL RBC 4.11 L (4.30-5.90) M/uL Hgb 9.7 L (12.0-16.0) g/dL Hct 32.4 L (36.0-46.0) % MCV 78.8 L (80.0-98.0) fL MCH 23.6 L (27.0-32.0) pg MCHC 29.9 L (31.0-37.0) g/dL RDW Std Deviation 71.3 H (28.0-62.0) fl RDW Coeff of Tramaine 27 H (11.0-15.0) % Plt Count 301 (150-400) K/uL MPV 8.60 (7.40-12.00) fL Neut % (Auto) DRIER OPERATOR Lymph % (Auto) DRIER OPERATOR Ramsey % (Auto) DRIER OPERATOR Eos % (Auto) DRIER OPERATOR Baso % (Auto) DRIER OPERATOR Neut # (Auto) DRIER OPERATOR Lymph # (Auto) DRIER OPERATOR Ramsey # (Auto) DRIER OPERATOR Eos # (Auto) DRIER OPERATOR Baso # (Auto) DRIER OPERATOR Add Manual Diff YES Neutrophils % (Manual) 49 (48.0-80.0) % Band Neutrophils % 7 % Lymphocytes % (Manual) 40 (16.0-40.0) % Monocytes % (Manual) 4 (0.0-15.0) % Nucleated RBC % 0.4 /100WBC Absolute Seg Neuts 8.8 H (1.4-5.7) Band Neutrophils # 1.3 Lymphocytes # (Manual) 7.2 H (0.6-2.4) Monocytes # (Manual) 0.7 (0.0-0.8) Nucleated RBCs # 0 K/uL INR 0.90 D-Dimer, Quantitative 1.13 H (0.0-0.52) mg/LFEU Lactate (0.20-2.00) mmol/L Sodium 139 (136-145) mmol/L Potassium 3.9 (3.5-5.1) mmol/L Chloride 102 (98-107) mmol/L Carbon Dioxide 31.3 (21.0-32.0) mmol/L BUN 25 H (7.0-18.0) mg/dL Creatinine 1.0 (0.6-1.0) mg/dL Est Cr Clr Drug Dosing 73.93 mL/min Estimated GFR (MDRD) > 60.0 ml/min Glucose 123 H (74-106) mg/dL Calcium 8.6 (8.5-10.1) mg/dL Total Bilirubin 0.2 (0.2-1.0) mg/dL AST 54 H (15-37) IU/L ALT 54 (14-63) IU/L Alkaline Phosphatase 74 (46-116) U/L Total Protein 6.4 (6.4-8.2) g/dL Albumin 2.7 L (3.4-5.0) g/dL Globulin 3.7 H (2.0-3.5) g/dL Albumin/Globulin Ratio 0.7 L (1.3-2.8) 08/08/18 Range/Units 00:16 WBC (4.0-11.0) K/uL RBC (4.30-5.90) M/uL Hgb (12.0-16.0) g/dL Hct (36.0-46.0) % MCV (80.0-98.0) fL MCH (27.0-32.0) pg MCHC (31.0-37.0) g/dL RDW Std Deviation (28.0-62.0) fl RDW Coeff of Tramaine (11.0-15.0) % Plt Count (150-400) K/uL MPV (7.40-12.00) fL Neut % (Auto) Lymph % (Auto) Ramsey % (Auto) Eos % (Auto) Baso % (Auto) Neut # (Auto) Lymph # (Auto) Ramsey # (Auto) Eos # (Auto) Baso # (Auto) Add Manual Diff Neutrophils % (Manual) (48.0-80.0) % Band Neutrophils % % Lymphocytes % (Manual) (16.0-40.0) % Monocytes % (Manual) (0.0-15.0) % Nucleated RBC % /100WBC Absolute Seg Neuts (1.4-5.7) Band Neutrophils # Lymphocytes # (Manual) (0.6-2.4) Monocytes # (Manual) (0.0-0.8) Nucleated RBCs # K/uL INR D-Dimer, Quantitative (0.0-0.52) mg/LFEU Lactate 2.2 H (0.20-2.00) mmol/L Sodium (136-145) mmol/L Potassium (3.5-5.1) mmol/L Chloride (98-107) mmol/L Carbon Dioxide (21.0-32.0) mmol/L BUN (7.0-18.0) mg/dL Creatinine (0.6-1.0) mg/dL Est Cr Clr Drug Dosing mL/min Estimated GFR (MDRD) ml/min Glucose (74-106) mg/dL Calcium (8.5-10.1) mg/dL Total Bilirubin (0.2-1.0) mg/dL AST (15-37) IU/L ALT (14-63) IU/L Alkaline Phosphatase (46-116) U/L Total Protein (6.4-8.2) g/dL Albumin (3.4-5.0) g/dL Globulin (2.0-3.5) g/dL Albumin/Globulin Ratio (1.3-2.8) Meds: Medications Discontinued Medications Generic Name Dose Route Start Last Admin Trade Name Freq PRN Reason Stop Dose Admin Fentanyl 50 mcg 08/08/18 01:48 08/08/18 01:56 Sublimaze IVPUSH 08/08/18 01:49 50 mcg ONETIME ONE Administration Hydromorphone HCl 1 mg 08/07/18 22:44 08/07/18 22:53 Dilaudid IVPUSH 08/07/18 22:45 1 mg ONETIME ONE Administration Hydromorphone HCl 1 mg 08/07/18 23:58 08/08/18 00:11 Dilaudid IVPUSH 08/07/18 23:59 1 mg ONETIME ONE Administration Sodium Chloride 1,000 mls @ 999 mls/hr 08/07/18 23:59 08/08/18 00:10 Normal Saline IV 08/08/18 00:59 999 mls/hr STAT ONE Administration Morphine Sulfate 2 mg 08/07/18 22:20 08/07/18 22:28 Morphine IVPUSH 08/07/18 22:21 2 mg ONETIME ONE Administration Ondansetron HCl 4 mg 08/07/18 22:23 08/07/18 22:27 Zofran IVPUSH 08/07/18 22:24 4 mg ONETIME ONE Administration Departure - Departure Time of Disposition: 02:02 Disposition: DC/Tfer to Acute Hospital 02 Condition: Serious Clinical Impression: Right foot pain, Ischemia of right lower extremity - Discharge Information Referrals: PCP,None [Primary Care Provider] - - My Orders Last 24 Hours: My Active Orders 08/08/18 00:00 Foot Comp Min 3V Rt [CR] Stat 08/08/18 00:08 Art Duplex Jellynoter Ext Ltd [US] Stat 08/08/18 00:39 CV Ankle Brachial Index (TERESA) [US] Stat - Assessment/Plan Last 24 Hours: My Active Orders 08/08/18 00:00 Foot Comp Min 3V Rt [CR] Stat 08/08/18 00:08 Art Duplex Lwr Ext Ltd [US] Stat 08/08/18 00:39 CV Ankle Brachial Index (TERESA) [US] Stat
[2018-08-07] MEDS ORDERED: Morphine 2 MG/ML Syringe IVPUSH ONE (22:20)
[2018-08-07] MEDS ORDERED: Ondansetron 4 MG/2 ML SDV IVPUSH ONE (22:23)
[2018-08-07] MEDS ORDERED: HYDROmorphone 1 MG/ML Syringe IVPUSH ONE ×2 (22:44→23:58)
[2018-08-07] MEDS ORDERED: Sodium Chloride 0.9% 1,000 ML IV ONE (23:59)
[2018-08-08 00:30] LABS: CHLORIDE,CL 102 mmol/L (98-107); SODIUM,NA 139 mmol/L (136-145)
[2018-08-08] MEDS ORDERED: fentaNYL 100 MCG/2 ML SDV IVPUSH ONE (01:48)
[2018-08-08] MEDS ORDERED: Morphine 2 MG/ML Syringe IVPUSH ONE (02:20)
[2018-08-08] MEDS ORDERED: Ondansetron 4 MG/2 ML SDV IVPUSH ONE (02:20)
[2018-08-08] MEDS ORDERED: Ondansetron 4 MG/2 ML SDV ONE (02:22)
[2018-08-08] MEDS ORDERED: Morphine 4 MG/ML Syringe ONE (02:22)
--- NOTE | 2018-08-08 11:26 | CR ---
EXAM DATE: 08/07/18 PATIENT'S AGE: 43 Patient: SHAYY HAILE Facility: [place], [place] Site . Site : 1975 Study: XRay Extremity [id number]/28/2018 1:42:09 AM Ordering Physician: Jignesh White Final Report: Indication: Pain Technique: Three views of the right foot Comparison: None available Findings/Impression: Bones: No acute fracture or dislocation. Focal contour irregularity in the posterior aspect of the distal tibia could be related to old trauma. A tiny plantar calcaneal spur and a small posterior calcaneal enthesophyte. Joint spaces: Unremarkable. Soft tissues: Dorsal soft tissue swelling. Dictated by Blaze Quiroz MD @ 08/08/2018 1:49:35 AM Dictated by: Blaze Quiroz MD @ 08/08/2018 01:49:43 (Electronic Signature) Report Signed by Proxy. LASHAUN
--- NOTE | 2018-08-08 11:33 | US ---
EXAM DATE: 08/07/18 PATIENT'S AGE: 43 Patient: SHAYY HAILE Facility: [place], [place] : 1975 Study: US Extremity Bilateral [id number] 1:42:10 AM Ordering Physician: Jignesh White Final Report: Exam: The right lower extremity arteries were examined per exam specific protocol with wasserman-scale ultrasound, color-flow and Doppler spectral analysis. Peak systolic velocities (PSV), Doppler waveform quality and velocity ratios if applicable, were documented at sites per exam specific protocol. In addition, resting ankle-brachial indices were obtained. Indication: Pain and discoloration of the right foot. Comparison: Resting ankle brachial indices dated 07/31/2018. Findings: Brachial: 160 mmHg Right HUNTING AND FISHING GUIDE: Not detectable Right DPA: Not detectable Prior TERESA: 0.56 (07/31/2018) Left HUNTING AND FISHING GUIDE: 160 mmHg (TERESA 1.00) Left DPA: 140 mmHg (TERESA 0.88) Prior TERESA: 0.93 (07/31/2018) RIGHT: DIAMOND SANDER: 121 cm/sec; triphasic waveforms PFA: 56 cm/sec; monophasic waveforms SFA PROX: 113 cm/sec; triphasic waveforms SFA MID: 73 cm/sec; multi physical other baseline waveforms SFA DIST: 63 cm/sec; multiphasic above the baseline waveforms POP PROX: 51 cm/sec; triphasic waveforms POP DIST: 30 cm/sec; multiphasic above the baseline waveforms HUNTING AND FISHING GUIDE: 34 cm/sec with multiphasic above the baseline waveforms transitioning to 35 cm/sec with monophasic waveforms in the mid aspect to occlusion in the distal aspect FLIP: 80 cm/sec; multiphasic above the baseline waveforms DPA: Occluded Impression: 1. Right: -Resting TERESA could not be obtained due to nondetectable pressures in the pedal arteries. The resting TERESA was moderately diminished on 07/31/2018. -Patent femoropopliteal arteries with multiphasic flow. No evidence of hemodynamically significant stenosis. -Patent FLIP and proximal-mid HUNTING AND FISHING GUIDE, though the distal HUNTING AND FISHING GUIDE and DPA are occluded. 2. Left: -Normal resting TERESA which was borderline diminished on 07/31/2018. 3. Elevated blood pressures. Dictated by Eric Ramírez MD @ Aug 08 2018 8:37AM (Electronic Signature) Report Signed by Proxy. LASHAUN
--- NOTE | 2018-08-08 11:33 | US ---
EXAM DATE: 08/07/18 PATIENT'S AGE: 43 Patient: SHAYY HAILE Facility: [place], [place] : 1975 Study: US Extremity Arterial-08/08/2018 1:40:51 AM Ordering Physician: Jignesh White Final Report: Exam: The right lower extremity arteries were examined per exam specific protocol with wasserman-scale ultrasound, color-flow and Doppler spectral analysis. Peak systolic velocities (PSV), Doppler waveform quality and velocity ratios if applicable, were documented at sites per exam specific protocol. In addition, resting ankle-brachial indices were obtained. Indication: Pain and discoloration of the right foot. Comparison: Resting ankle brachial indices dated 07/31/2018. Findings: Brachial: 160 mmHg Right DISULFURIZER TENDER: Not detectable Right DPA: Not detectable Prior TERESA: 0.56 (07/31/2018) Left DISULFURIZER TENDER: 160 mmHg (TERESA 1.00) Left DPA: 140 mmHg (TERESA 0.88) Prior TERESA: 0.93 (07/31/2018) RIGHT: DOUGH PANNER: 121 cm/sec; triphasic waveforms PFA: 56 cm/sec; monophasic waveforms SFA PROX: 113 cm/sec; triphasic waveforms SFA MID: 73 cm/sec; multi physical other baseline waveforms SFA DIST: 63 cm/sec; multiphasic above the baseline waveforms POP PROX: 51 cm/sec; triphasic waveforms POP DIST: 30 cm/sec; multiphasic above the baseline waveforms DISULFURIZER TENDER: 34 cm/sec with multiphasic above the baseline waveforms transitioning to 35 cm/sec with monophasic waveforms in the mid aspect to occlusion in the distal aspect FLIP: 80 cm/sec; multiphasic above the baseline waveforms DPA: Occluded Impression: 1. Right: -Resting TERESA could not be obtained due to nondetectable pressures in the pedal arteries. The resting TERESA was moderately diminished on 07/31/2018. -Patent femoropopliteal arteries with multiphasic flow. No evidence of hemodynamically significant stenosis. -Patent FLIP and proximal-mid DISULFURIZER TENDER, though the distal DISULFURIZER TENDER and DPA are occluded. 2. Left: -Normal resting TERESA which was borderline diminished on 07/31/2018. 3. Elevated blood pressures. Dictated by Eric Ramírez MD @ Aug 08 2018 8:37AM (Electronic Signature) Report Signed by Proxy. LASHAUN
== END 2018-08-08 02:27 ==
LOC: MW.ED 21:37
DX: I99.8 Other disorder of circulatory system (principal); M79.671 Pain in right foot; G35 Multiple sclerosis; I10 Essential (primary) hypertension; Z79.899 Other long term (current) drug therapy
CPT/HCPCS: 36415; 73630; 80053; 83605; 85025; 85379; 85610; 93922; 93926; 96361; 96374; 96375; 96376; 99285; J1170; J2270; J2405; J3010; J7040; 99284